=== PATIENT | male | born 1945 | race Caucasian/White ===

== ENCOUNTER 2023-08-02 05:56 | Emergency (ER) | payer OTHER, SELFPAY ==
--- NOTE | ~2023-08-02 | XR_ITS ---
EXAMINATION: XR CHEST CLINICAL INFORMATION: Shortness of breath, altered mental status COMPARISON: None available. TECHNIQUE: Frontal view of the chest was obtained. FINDINGS: vascularity. LUNGS: Diffuse vascular and interstitial prominence is seen in bilateral lungs. No focal airspace disease could be seen. No pneumothorax is seen. BONES: Bony skeleton is intact. XR/XR chest 1V IMPRESSION: 1. Findings are suggestive of COPD. 2. No radiographic signs of acute cardiopulmonary process..
--- NOTE | ~2023-08-02 | CT_ITS ---
EXAMINATION: CT HEAD WITHOUT CONTRAST CLINICAL INFORMATION: Altered mental status. COMPARISON: None available. TECHNIQUE: Contiguous axial imaging was performed from the skull base to vertex without intravenous administration of contrast. This CT examination was performed using dose optimization techniques as appropriate, variously including the following: *Automated exposure control *Adjustment of mA and/or kV according to patient size (this includes techniques or standardized protocols for targeted exams where dose is matched to indication/reason for exam; i.e. extremities or head) *Use of iterative reconstruction technique DLP: 708.43 mGy-cm for the head CT, after the topogram. Please see the dose sheet. FINDINGS: No acute findings. No intracranial hemorrhage, extra-axial surface collection, focal mass effect or midline shift. There is atherosclerotic calcification of proximal intradural segments of vertebral arteries and cavernous carotid arteries. The patchy hypoattenuation within supratentorial white matter is compatible with sequela of chronic microangiopathy. There is an old small infarction along the left appiah radiata. The gaines-white matter differentiation is maintained. No evidence of an acute major vascular territory infarction. Mild parenchymal volume loss with commensurate prominence of ventricles and sulci; no hydrocephalus. Incidentally noted is a very small osteoma of the right frontal sinus and mucosal thickening of bilateral ethmoid air cells. No air-fluid levels within paranasal sinuses. Mild left mastoid effusion is present. A temporomandibular joints and orbits are unremarkable. CT/CT head/brain wo IV con IMPRESSION: No acute intracranial pathology. 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
--- NOTE | ~2023-08-02 | CT_ITS ---
EXAMINATION: CT ABDOMEN AND PELVIS WITH CONTRAST CLINICAL INFORMATION: Abdominal pain. Urinary tract infection. COMPARISON: None available. TECHNIQUE: Multidetector volumetric images were obtained from the superior aspect of the liver through the pubic symphysis following administration 85 mL of Omnipaque 350 intravenous contrast. Sagittal and coronal reformatted images were obtained on the technologist's workstation. Oral contrast: No This CT examination was performed using dose optimization techniques as appropriate, variously including the following: *Automated exposure control *Adjustment of mA and/or kV according to patient size (this includes techniques or standardized protocols for targeted exams where dose is matched to indication/reason for exam; i.e. extremities or head) *Use of iterative reconstruction technique DLP: 783.46 mGy-cm for the abd/pelvis CT, after topograms. See the dose sheet. FINDINGS: LUNG BASES: No pulmonary consolidation or pleural effusion. HEPATOBILIARY: Liver has normal size, shape, and attenuation. Gallbladder has a normal appearance. No dilated bile ducts. PANCREAS: No edema, pancreatic ductal dilatation or mass. SPLEEN: Normal. ADRENAL GLANDS: The right adrenal gland is normal. The superior left adrenal gland is thickened and measures up to 1.6 cm transverse, 3.4 cm AP, density of 35 Hounsfield units on these contrast-enhanced images. Probable adrenal adenoma. If deemed clinically appropriate, pursue follow-up with adrenal washout CT or chemical shift MRI. KIDNEYS AND URETERS: The left kidney is ectopically positioned within the pelvis. The right kidney is in normal position. Renal vascular calcifications are noted. No nephrolithiasis or hydronephrosis. Simple cyst of the left kidney is 2.1 cm transverse dimension. No renal imaging follow-up is recommended for a simple cyst. BLADDER: The urinary bladder is grossly normal. No bladder wall thickening or perivesical edema. BOWEL AND PERITONEUM: Stomach and small bowel are unremarkable. No dilated loops. The appendix is normal. No overt colonic wall thickening or mesenteric fat stranding. No free fluid or pneumoperitoneum. ABDOMINAL WALL: Unremarkable. VASCULATURE: Moderate atherosclerosis of the abdominal aorta and iliac arteries without aneurysm. LYMPH NODES: No pathologic sized lymph nodes in the abdomen. No inguinal lymphadenopathy. Mildly enlarged lymph nodes of [place] measure 1.5 cm short axis dimension in the right and 1.4 cm short axis dimension on the left. PELVIC VISCERA: Prostate gland is prominent, measures approximately 4.8 x 3.8 x 4.8 cm. MUSCULOSKELETAL: Bones are diffusely osteopenic. Chronic loss of height of the T12 vertebral body resulting in approximately 20% height reduction. Also, old L4 compression fracture resulting in approximately 40% height loss. Severe facet arthropathy and grade 1 anterolisthesis at L4-L5. CT/CT abdomen pelvis w IV con IMPRESSION: * No acute imaging abnormalities along the genitourinary tracts. No nephrolithiasis, hydronephrosis or perinephric edema. * Mild prostatomegaly. * The nodular enlargement of the left adrenal gland is likely from an adenoma. If deemed clinically appropriate, pursue follow-up with adrenal washout CT or chemical shift MRI. * The most inferior external iliac chain lymph nodes (nodes of [place]) are mildly enlarged. This is of questionable significance.
[2023-08-02 06:20] VITALS: BP 141/77; PULSE 93; RESP 16; TEMP 37.1; O2SAT 95; BMI 18.1
--- NOTE | 2023-08-02 06:20 | PC.NURSE ---
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 Situation would esculate further so pt was checked by security and pt is clear. sitter present.
[2023-08-02 06:23] LABS: Basophils Absolute Auto 0.1 X10*3/uL (0.0-0.2); Basophils Percent Auto 0.5 % (0-2); Eosinophils Absolute Auto 0.1 X10*3/uL (0.0-0.4); Eosinophils Percent Auto 1.5 % (0-4); Hematocrit 39.1 % (42.0-52.0); Hemoglobin 12.9 g/dl (14.0-18.0); Imm Gran Abs Auto 0.04 X10*3/uL (0.00-0.03); Imm Gran Pct Auto 0.4 % (0.0-0.4); Lymphocytes Absolute Auto 1.9 X10*3/uL (1.2-4.9); Lymphocytes Percent Auto 19.8 % (20-40); MANUAL DIFF FLAG NO; Mean Corpuscular Hemoglobin 28.7 pg (27.0-33.0); Mean Corpuscular Volume 86.9 fL (80.0-98.0); Mean Platelet Volume 10.2 fL (9.4-12.4); Monocytes Absolute Auto 0.7 X10*3/uL (0.1-1.2); Monocytes Percent Auto 7.8 % (2-11); Neutrophils Absolute Auto 6.6 x10*3/uL (2.0-8.3); Platelet Count 197 X10*3/uL (160-400); Red Cell Distribution Width 13.2 % (11.0-16.0); White Blood Count 9.4 X10*3/uL (4.8-10.8)
--- NOTE | 2023-08-02 06:28 | PC.NURSE ---
Pt presents to ED via EMS after reports of him not taking care of himself. Per Section 12, pt was slurring words, urinating on himself and the floor, cannot stand up, does not shower, or care for himself. Pt also attempted to throw a coffee mug at first responders. Pt refused vital signs for EMS. When pt was transferred to ED stretcher, he refused to speak to staff. Pt does not understand why he was brought to the hospital. I attempted to explain to pt that we are concerned that he is not taking care of himself. He is insistent that he can care for himself, he does not realize he smells of stale urine. Pt refused to changeover, but allowed security to search his pockets. Labs were drawn and sent. Pt continues to yell out in bed, asking who's the motherfucker who brought me here? Pt has been cursing at staff in both Kyrgyz and Welsh. You're all going to together of sickness. Pt waiting ED provider at this time.
[2023-08-02 06:29] VITALS: BP 141/77; PULSE 93; RESP 19; TEMP 36.8; O2SAT 97
--- NOTE | 2023-08-02 06:36 | MHC.EDTECH ---
Pt arrived under a section 12 w/ PD and Ambulance. Pt is refusing to be changed over software installation engineer and Covering RN are aware. Security was called and padded pt down for contraband. Pt remains unchanged at the time real estate office supervisor aware
[2023-08-02 06:38] VITALS: BP 141/77; PULSE 93; RESP 16; TEMP 37.1; O2SAT 95
[2023-08-02 06:38] LABS: Alanine Aminotransferase 16 U/L (0-40); Albumin Level 3.8 g/dL (3.5-5.0); Alkaline Phosphatase 83 U/L (39-117); Anion Gap 18 (12-20); Aspartate Amino Transferase 22 U/L (5-37); Bilirubin Total 0.3 mg/dL (0.0-1.0); Blood Urea Nitrogen 17 mg/dL (9-16); Calcium 8.9 mg/dL (8.4-10.2); Carbon Dioxide 18 mmol/L (22-29); Chloride 112 mmol/L (96-108); Creatinine Clr Calc Pharmacy 70.3; Estimated Glomerular Filt Rate > 60; Glucose Random 141 mg/dL (60-115); Potassium 3.5 mmol/L (3.3-5.1); Sodium 144 mmol/L (135-145); Total Protein 6.6 g/dL (6.5-8.0)
--- NOTE | 2023-08-02 07:22 | ED.GENADULT ---
HPI - General Adult General Chief complaint: General Medical Stated complaint: combative ?uti Time Seen by Provider: 08/02/23 06:44 Source: patient and EMS Mode of arrival: EMS Limitations: altered mental status (Alert to person not place time or situation ) History of Present Illness HPI narrative: 78-year-old male hx dm, schizophrenia, diabetes presents via ambulance for failure to thrive x unclear amount of time. Patient tells me he doesn't know why he is here and he would like to leave. EMS brought him in on a section 12. Per EMS partner called ems because patient was not acting himself, seemed confused and was not caring for himself. He has not been showering or taking care of activities of dialy living. Was combative with EMS but cooperative here. Poor historian and unable to give me a clear history. No trauma reported by ems or patient. Related Data Allergies Allergy/AdvReac Type Severity Reaction Status Date / Time No Known Allergies Allergy Verified 08/02/23 06:27 Review of Systems Review of Systems: Yes all other systems are reviewed and are negative PMFSH Past Medical History Attestation statement: The following information was validated with the patient. Source: old records reviewed and nursing notes reviewed Physical Exam ED Vital Signs: Vital Signs - 24 hr 08/02/23 06:20 08/02/23 06:29 08/02/23 06:38 Temperature 98.8 F 98.3 F 98.8 F Pulse Rate 93 93 93 Respiratory Rate 16 19 16 Blood Pressure 141/77 H 141/77 H 141/77 H Pulse Oximetry 95 97 95 Oxygen Delivery Method Room Air Room Air Room Air 08/02/23 09:56 Temperature 98.1 F Pulse Rate 64 Respiratory Rate 18 Blood Pressure 141/61 H Pulse Oximetry 98 Oxygen Delivery Method Room Air BMI result Body Mass Index 18.1 vss Appearance: Alert.? Oriented to person, not place, time or situation.? No acute distress.?Appears unkempt Head: Normocephalic, atraumatic, no step-offs or deformities Eyes: Pupils equal, round and reactive to light.? Neck: Normal inspection.? Neck supple.? CVS: Normal heart rate and rhythm.? Pulses normal.? Respiratory: No respiratory distress.? Breath sounds normal.? Abdomen: Soft and nontender.? Skin: Skin warm and dry.? Normal skin color.? Normal skin turgor.? Extremities: No lower extremity edema.? No calf ttp. 5/5 strength to bilateral upper and lower extremities Neuro: Oriented only to person.? No motor deficit.? No sensory deficit. CN 2-12 intact Course Reevaluation(s) Reevaluation #1: CBC unremarkable. Chemistry no acute findings needed intervention. UA no acute findings. 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 Neuro non-focal. Spoke to daughter Rylie Jordan [phone] who tells me she is patients CONVERTING TECHNICIAN he has been having issues such as worsening confusion at night, weakness, difficulties completing daily tasks of living. He lives at home with his girlfriend Zakia Ortiz ) who feels likes she needs help caring for him and its worse at night. Will give patients GF a call for more information Time: 11:28 Reevaluation #2: Patients girlfriend Zakia tells me she wants him to go to a assisted. She can no longer care for him at home. He is very weak and so is she and he is also urinating on the floor. At this time patient will be placed in obs to allow more time to be seen by PT and CM. Time: 11:30 Medications Administered Discontinued Medications Generic Name Dose Route Start Last Admin Trade Name Freq PRN Reason Stop Dose Admin Iohexol 100 ml 08/02/23 09:47 08/02/23 09:48 Iohexol 350 Mg/Ml 100 Ml Infus..Btl IV 08/02/23 09:48 85 ml ONCE ONE Administration Medical Decision Making Medical Decision Making [facility] Narrative: 07 78 year old male presents w/ ams, ftt from home PE unkempt, oriented only to person not time or situation. No abd tenderness. hx and pe concerning for FTT, UTI. Will rule out metabolic derangments, cystitis. Unlikely ICH, stroke, posterior stroke. Plan- labs, imaging, ua Differential Diagnosis Differential Diagnoses: The differential diagnosis associated with the presentation includes hx and pe concerning for FTT, UTI. Will rule out metabolic derangments, cystitis. Unlikely ICH, stroke, posterior stroke. Admission/Observation Consideration of admission/observation: Escalation of care including admission/observation considered Possible Lab Data [facility] Lab Attestation statement: I reviewed the patient's lab results. 08/02/23 06:19 08/02/23 06:19 Labs: Lab Results 08/02/23 08/02/23 Range/Units 06:19 10:41 WBC 9.4 (4.8-10.8) X10*3/uL RBC 4.50 L (4.60-5.80) X10*6/uL Hgb 12.9 L (14.0-18.0) g/dl Hct 39.1 L (42.0-52.0) % MCV 86.9 (80.0-98.0) fL MCH 28.7 (27.0-33.0) pg MCHC 33.0 (31.0-36.0) g/dl RDW 13.2 (11.0-16.0) % Plt Count 197 (160-400) X10*3/uL MPV 10.2 (9.4-12.4) fL Immature Gran % (Auto) 0.4 (0.0-0.4) % Neut % (Auto) 70.0 (45-73) % Lymph % (Auto) 19.8 L (20-40) % [place] % (Auto) 7.8 (2-11) % Eos % (Auto) 1.5 (0-4) % Baso % (Auto) 0.5 (0-2) % Lymph # (Auto) 1.9 (1.2-4.9) X10*3/uL [place] # (Auto) 0.7 (0.1-1.2) X10*3/uL Eos # (Auto) 0.1 (0.0-0.4) X10*3/uL Baso # (Auto) 0.1 (0.0-0.2) X10*3/uL Abs Immat Gran (auto) 0.04 H (0.00-0.03) X10*3/uL Absolute Neuts (auto) 6.6 (2.0-8.3) x10*3/uL Absolute Nucleated RBC 0.000 (0.0-0.012) X10*3/uL Nucleated RBC % (auto) 0.0 (0.0-0.2) /100WBC Sodium 144 (135-145) mmol/L Potassium 3.5 (3.3-5.1) mmol/L Chloride 112 H (96-108) mmol/L Carbon Dioxide 18 L (22-29) mmol/L Anion Gap 18 (12-20) BUN 17 H (9-16) mg/dL Creatinine 0.71 (0.5-1.4) mg/dL Estim Creat Clear Calc 70.3 Estimated GFR > 60 Random Glucose 141 H (60-115) mg/dL Calcium 8.9 (8.4-10.2) mg/dL Total Bilirubin 0.3 (0.0-1.0) mg/dL AST 22 (5-37) U/L ALT 16 (0-40) U/L Alkaline Phosphatase 83 (39-117) U/L Total Protein 6.6 (6.5-8.0) g/dL Albumin 3.8 (3.5-5.0) g/dL Urine Color Yellow Urine Appearance Clear Urine pH 7.0 (5.0-9.0) Ur Specific [place] >= 1.030 H (1.005-1.025) Urine Protein Negative (Neg-Trace) mg/dL Urine Glucose (UA) Negative (Negative) mg/dL Urine Ketones Negative (Negative) mg/dL Urine Blood Negative (Negative) Urine Nitrite Negative (Negative) Ur Leukocyte Esterase Negative (Negative) Independent Interpretation I performed an independent interpretation of an: CT Scan (CT/CT head/brain wo IV con IMPRESSION: No acute intracranial pathology. 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 Social Determinants Patient?s care significantly limited by Social Determinants of Health including: Inadequate housing, Low income, Alcoholism and drug addiction in family, Problems related to primary support group, Unemployment, Problems related to employment and Other Social Determinant of Health Critical Care Time Critical Care Time Critical Care Time: Yes Total Critical Care Time: 35 Attestation: I attest to this time spent taking care of the patient, obtaining history, physical, reviewing labs, imaging, speaking to my attending, speaking to specialist. Discharge Plan Discharge Clinical Impression: Physical deconditioning Patient Disposition: Still a Patient Print Language: Tajik
--- NOTE | 2023-08-02 09:20 | PC.NURSE ---
assumed care of pt at 0700, pt initially not changed over d/t increased agitation - pt changed over by this RN into regular hospital brunilda, clothing at bedside - hat, sweatshirt, underwear, sweatpants, t-shirt. at alert and oriented to person, understands that he is at a hospital, unclear which one, or why he is here, doesn't know the year/date. 20G PIV placed L AC. pt pending CT scans, verbalised understand of need for a urine sample.
[2023-08-02] MEDS: iohexoL 350 MG/ML 100 ML INFUS..BTL IV (09:48)
[2023-08-02 09:56] VITALS: BP 141/61; PULSE 64; RESP 18; TEMP 36.7; O2SAT 98
[2023-08-02 10:47] LABS: Appearance Urine Clear; Color Urine Yellow; Glucose Urine UA Negative (Negative); Leukocyte Esterase Urine Negative (Negative); Nitrite Urine Negative (Negative); Specific Gravity - Urine >= 1.030 (1.005-1.025); Urine Blood Negative (Negative); Urine Ketones Negative (Negative); Urine Protein Negative (Neg-Trace)
[2023-08-02 11:56] LABS: Ammonia 28 umol/L (13-55)
[2023-08-02 12:13] LABS: Amphetamine Screen Urine Not Detected (Not Detect); Barbiturates, Urine Not Detected (Not Detect); Benzodiazepines Screen Urine Not Detected (Not Detect); Buprenorphine Scr Not Detected (Not Detect); Cannabinoid Screen Urine Not Detected (Not Detect); Cocaine Screen Urine POSITIVE (Not Detect); Fentanyl, urine Not Detected (Not Detect); Methadone Screen, Urine Not Detected (Not Detect); Opiate Screen Urine Not Detected (Not Detect); Oxycodone Screen Urine Not Detected (Not Detect); Phencyclidine Screen Urine Not Detected (Not Detect)
[2023-08-02 12:55] LABS: COVID-19 Test Negative (Negative); IDNOW Serial# 152EDE1D
--- NOTE | 2023-08-02 15:36 | MHC.CM.ED ---
Received case management consult from M[facility]ART[facility]NE[facility]. Eladio came to the ER due to AMS. Patient has been confused. Physical therapy eval completed. 19/10 care is recommended. Attempted to meet with patient. Patient is currently confused. Spoke with patient's sig other/HCP, Zakia via telephone at [phone]. 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 Patient sleeps on the couch. Zakia sleeps in the bedroom. About 3 days ago patient stopped walking and started crawling around the apartment. PCP verified. Copy of HCP obtained from [facility]. Zakia does not feel patient can safely live with her anymore. Zakia aware referral will be broadcasted. Also aware 4 faciities closed locally making placement difficult. Zakia verbalized understanding. Referral broadcasted in [facility] to all facilities within 50 miles that are contracted with [facility] at this time. Continue to monitor for d/c needs.
--- NOTE | 2023-08-02 16:32 | MHC.EDTECH ---
Pt refuses vital signs, begins to get agitated
--- NOTE | 2023-08-02 16:39 | PHA.MEDREC ---
Pharmacy Consult ? Medication Reconciliation Pharmacy has completed the medication reconciliation. Received a list from [facility]. Arslan HamD
--- NOTE | 2023-08-02 16:41 | PC.NURSE ---
this rn assumed care of pt @ 2731. pt yelling at this RN stating you motherfuckers put me in the basement, I'm not staying here . pt instructed to not yell that pt is in the hospital. 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 pt instructed again to not yell as he is in the hospital
[2023-08-02 17:53] VITALS: BP 136/70; PULSE 61; RESP 16; TEMP 36.3; O2SAT 98
[2023-08-02] MEDS: ARIPiprazole 10 MG TABLET PO (18:00)
[2023-08-02] MEDS: amLODIPine Besylate 2.5 MG TABLET PO (18:00)
[2023-08-02] MEDS: Tamsulosin HCL 0.4 MG CAPSULE PO (18:00)
--- NOTE | 2023-08-02 18:17 | PC.NURSE ---
pt provided with diabetic meal try. more calm and cooperative after meal. pt medicated according to umberto
[2023-08-02] MEDS: traZODone HCL 100 MG TABLET PO (20:46)
[2023-08-02] MEDS: lisinopriL 20 MG TABLET PO (20:46)
[2023-08-02] MEDS: QUEtiapine Fumarate 100 MG TABLET PO (20:46)
[2023-08-02] MEDS: Mirtazapine 30 MG TABLET PO (20:47)
[2023-08-02 22:00] VITALS: BP 147/67; PULSE 79; RESP 16; TEMP 36.9; O2SAT 95
--- NOTE | 2023-08-02 22:24 | PC.NURSE ---
pt attempted to removed iv this rn attempted to wrap iv pt refused pt reminded to leave iv in place reinforced with tape pt provided with snack
--- NOTE | 2023-08-02 22:47 | MHC.EDTECH ---
Urinal emptied at 500cc, dark yellow. Pt is eating a tuna sandwich and drinking cranberry juice.
[2023-08-03 04:39] VITALS: BP 158/62; PULSE 59; RESP 19; TEMP 36.9; O2SAT 96
--- NOTE | 2023-08-03 04:39 | PC.NURSE ---
Pt oob with 2 assist to the commode, tolerated well, pt a brown medium soft BM
--- NOTE | 2023-08-03 08:38 | PC.NURSE ---
Daughter Lalito Simms is patient's daughter and would like to be contacted with the plan. she is his WIG COMBER and helps her mom when able but cannot take the patient in as works record librarian and has small children. he number is [phone]
[2023-08-03 09:54] VITALS: BP 158/62
[2023-08-03] MEDS: ARIPiprazole 10 MG TABLET PO (09:54)
[2023-08-03] MEDS: lisinopriL 20 MG TABLET PO ×2 (09:54→22:16)
[2023-08-03 09:55] VITALS: BP 158/62
[2023-08-03] MEDS: Tamsulosin HCL 0.4 MG CAPSULE PO (09:55)
[2023-08-03] MEDS: amLODIPine Besylate 2.5 MG TABLET PO (09:55)
--- NOTE | 2023-08-03 13:26 | MHC.CM.ED ---
Patient remains in ER overflow. No bed offers at this time. Referral broadcasted to all facilities in the [facility] that are contracted with [facility]. 140 referrals made. Continue to monitor for d/c needs.
[2023-08-03 14:00] VITALS: BP 122/59; PULSE 61; RESP 16; TEMP 37.1; O2SAT 95
[2023-08-03] MEDS: Lidocaine 4 % Patch ADH..PATCH 1 PATCH TRANSDERMA (14:29)
[2023-08-03 19:56] VITALS: BP 140/56; PULSE 65; RESP 16; TEMP 37.2; O2SAT 98
[2023-08-03] MEDS: Mirtazapine 30 MG TABLET PO (22:15)
[2023-08-03] MEDS: Acetaminophen 325 MG TABLET 975 MG PO (22:15)
[2023-08-03] MEDS: traZODone HCL 100 MG TABLET PO (22:15)
[2023-08-03 22:16] VITALS: BP 136/52
[2023-08-03] MEDS: QUEtiapine Fumarate 100 MG TABLET PO (22:18)
--- NOTE | 2023-08-03 23:29 | PC.NURSE ---
pt yell at t.w and CIRCULAR SAW EDGE FUSER, threw urinal cup. theraptuic communication provided pt told t/w to get out of his house. offered PRN medication.
--- NOTE | 2023-08-03 23:44 | PC.NURSE ---
pt attempting to get out of bed despite being a two person assist. Threatened to spit at staff. Refusing meds or assistance to ambulate. PT calling TW and SANDWICH ARTIST derogatory names.
[2023-08-04 05:52] VITALS: BP 161/65; PULSE 67; RESP 19; TEMP 36.7; O2SAT 94
--- NOTE | 2023-08-04 06:35 | PC.NURSE ---
pt pulled out IV
[2023-08-04 08:07] LABS: Glucose, Whole Blood 148 mg/dL (60-115)
[2023-08-04] MEDS: ARIPiprazole 10 MG TABLET PO (09:08)
[2023-08-04] MEDS: Tamsulosin HCL 0.4 MG CAPSULE PO (09:08)
[2023-08-04] MEDS: amLODIPine Besylate 2.5 MG TABLET PO (09:09)
[2023-08-04] MEDS: lisinopriL 20 MG TABLET PO ×2 (09:10→21:53)
[2023-08-04 13:16] VITALS: PULSE 63; RESP 16; TEMP 37.1; O2SAT 97
--- NOTE | 2023-08-04 13:36 | MHC.CM.ED ---
Patient remains in ER overflow. [facility] asking for updated clinical info. Sent as requested. Multiple facilities have asked if HCP is invoked. Psych consult ordered and pending at this time for medication recommendations and to eval if patient has capacity to make his own decisions. Continue to monitor for d/c needs.
--- NOTE | 2023-08-04 14:32 | PC.NURSE ---
oob sitting in recline chair, ate well for breakfast and lunch. Denies pain or discomfort
--- NOTE | 2023-08-04 16:07 | PM.PSYCN ---
History of Present Illness Date of Service: 08/04/23 Chief Complaint: combative ?uti HPI Narrative: Patient is a 78-year-old male with history dementia, schizophrenia, diabetes, hypertension, cocaine abuse who presents for dysregulated behavior. Patient lives with his female partner Zakia said that for the past several days he has been crawling on the floor, urinating on the floor. She says she can not take care of him anymore and thinks he needs a retirement. Initially in the ED patient was agitated however has since calmed down and remained calm and cooperative. Psychiatric consult placed to assess for capacity in making decisions regarding treatment. Patient seen with rubber mold maker/ Patient sitting calmly; he is cooperative. Patient knows his name and date of . However he does not know the day, month, or year. He knows that he is in [place] but he does not know the town or where he is at the moment including not knowing that he is currently at a hospital. When asked if this facility building is a hospital, a library, or school, he said I do not know. When told he is at the hospital he said he does not know why he is here. He does not know where he lives or his address. Patient says he lives with his daughters however this is not true, he lives with his girlfriend. He does not remember his girlfriend's name; he does not remember his daughter's names, even though one of them (Rylie) is his bottom liquor attendant and sees him every day Patient says he knows he has diabetes and high blood pressure but that he does not take his medication anymore because I do not need medication. When asked to explain that if he has diabetes, why does he not need medication, patient answered I feel fine.. Patient endorses AH of voices that talk to each other but he does not really understand what they say. Initially Patient does not want to stay in the hospital and says he wants to go home. Later he said I want to stay here unless my mother comes... Unless she has . Casino Floor Person asked how he will get home if he does not know his address or where he lives. Patient says if i start walking home I'll find it. Casino Floor Person asked patient to demonstrate how he will walk. He had much trouble standing up from seated position. Patient shuffled very slowly for about 3-4 feet and said he was worried he might fall (race and sports book writer had similar concern and stayed close by); patient swayed a bit, unbalanced; to turn around, he had to shuffle in an arc to do so. Patient admitted to using cocaine which he says he does from time to time; he says he bought with some girls and seem to imply someone came into the house and sold it to him. Casino Floor Person spoke with patient's daughter Rlyie who said that patient does have chronic knee pain and this was perhaps why he was crawling on the floor. She says that he needs assistance and cues to do things like get dressed. She says he is mostly quiet but that her mother has told her that in the evening times he typically gets louder whole make nonsensical comments. She says periodically he will get mildly dysregulated and at this point she thinks that he remains at his regular self. Past Psychiatric History: Diagnosed with dementia and schizophrenia Medical Evaluation Reviewed: Yes [facility] Medical History (Updated 08/05/23 @ 17:59 by Javier Tong MD) Schizophrenia Dementia Diagnostics Vital Signs (24Hr): Vital Signs - 24 hr 08/03/23 19:56 08/03/23 22:16 08/04/23 05:52 Temperature 98.9 F 98.0 F Pulse Rate 65 67 Respiratory Rate 16 19 Blood Pressure 140/56 H 136/52 L 161/65 H Pulse Oximetry 98 94 Oxygen Delivery Method Room Air Room Air 08/04/23 13:16 Temperature 98.7 F Pulse Rate 63 Respiratory Rate 16 Blood Pressure Pulse Oximetry 97 Oxygen Delivery Method Room Air BMI result Body Mass Index 18.1 Labs 08/02/23 06:19 08/02/23 06:19 Labs: Laboratory Results - last 48 hr 08/04/23 08:04 POC Glucose 148 H Imaging Radiology Impressions: ITS Impressions Abdomen/Pelvis CT 08/02/23 09:52 IMPRESSION: * No acute imaging abnormalities along the genitourinary tracts. No nephrolithiasis, hydronephrosis or perinephric edema. * Mild prostatomegaly. * The nodular enlargement of the left adrenal gland is likely from an adenoma. If deemed clinically appropriate, pursue follow-up with adrenal washout CT or chemical shift MRI. * The most inferior external iliac chain lymph nodes (nodes of [place]) are mildly enlarged. This is of questionable significance. Head CT 08/02/23 09:52 IMPRESSION: No acute intracranial pathology. 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 Chest X-Ray 08/02/23 11:15 IMPRESSION: 1. Findings are suggestive of COPD. 2. No radiographic signs of acute cardiopulmonary process.. Medications Medications Current Medications Amlodipine Besylate (Amlodipine Besylate 2.5 Mg Tablet) 2.5 mg PO DAILY [facility]; Protocol Last Admin: 08/04/23 09:09 Dose: 2.5 mg Aripiprazole (Aripiprazole 10 Mg Tablet) 10 mg PO DAILY [facility] Last Admin: 08/04/23 09:08 Dose: 10 mg Lidocaine (Lidocaine 4 % Patch Adh..Patch) 1 patch TRANSDERMA TID PRN; Protocol PRN Reason: Pain, Moderate(Pain Scale 4-6) Last Admin: 08/03/23 14:29 Dose: 1 patch Lisinopril (Lisinopril 20 Mg Tablet) 20 mg PO BID [facility]; Protocol Last Admin: 08/04/23 09:10 Dose: 20 mg Metformin HCl (Metformin Hcl 500 Mg Tablet) 500 mg PO BID [facility] Mirtazapine (Mirtazapine 30 Mg Tablet) 30 mg PO BEDTIME [facility] Last Admin: 08/03/23 22:15 Dose: 30 mg Non-Formulary Medication (Aripiprazole [Abilify Maintena]) 400 mg IM QMONTH [facility] Quetiapine Fumarate (Quetiapine Fumarate 100 Mg Tablet) 100 mg PO BEDTIME [facility] Last Admin: 08/03/23 22:18 Dose: 100 mg Tamsulosin HCl (Tamsulosin Hcl 0.4 Mg Capsule) 0.4 mg PO DAILY [facility] Last Admin: 08/04/23 09:08 Dose: 0.4 mg Trazodone HCl (Trazodone Hcl 25 Mg Halftab) 25 mg PO BID PRN PRN Reason: anxiety Trazodone HCl (Trazodone Hcl 100 Mg Tablet) 100 mg PO BEDTIME [facility] Last Admin: 08/03/23 22:15 Dose: 100 mg Allergies Allergies Allergy/AdvReac Type Severity Reaction Status Date / Time No Known Allergies Allergy Verified 08/02/23 06:27 Assessment & Plan Assessment & Plan (1) Dementia: Status: Acute Code(s): F03.90 - Unspecified dementia, unspecified severity, without behavioral disturbance, psychotic disturbance, mood disturbance, and anxiety (2) Schizophrenia: Status: Acute Code(s): F20.9 - Schizophrenia, unspecified Plan Patient is a 78-year-old male with history dementia, schizophrenia, diabetes, hypertension, cocaine abuse who presents for dysregulated behavior. Patient lives with his female partner Zakia said that for the past several days he has been crawling on the floor, urinating on the floor. She says she can not take care of him anymore and thinks he needs a retirement. Initially in the ED patient was agitated however has since calmed down and remained calm and cooperative. Psychiatric consult placed to assess for capacity in making decisions regarding treatment. Patient seen with rubber mold maker/ Patient sitting calmly; he is cooperative. Patient knows his name and date of . However he does not know the day, month, or year. He knows that he is in [place] but he does not know the town or where he is at the moment including not knowing that he is currently at a hospital. When asked if this facility building is a hospital, a library, or school, he said I do not know. When told he is at the hospital he said he does not know why he is here. He does not know where he lives or his address. Patient says he lives with his daughters however this is not true, he lives with his girlfriend. He does not remember his girlfriend's name; he does not remember his daughter's names, even though one of them (Rylie) is his bottom liquor attendant and sees him every day Patient says he knows he has diabetes and high blood pressure but that he does not take his medication anymore because I do not need medication. When asked to explain that if he has diabetes, why does he not need medication, patient answered I feel fine.. Patient endorses AH of voices that talk to each other but he does not really understand what they say. Initially Patient does not want to stay in the hospital and says he wants to go home. Later he said I want to stay here unless my mother comes... Unless she has . Casino Floor Person asked how he will get home if he does not know his address or where he lives. Patient says if i start walking home I'll find it. Casino Floor Person asked patient to demonstrate how he will walk. He had much trouble standing up from seated position. Patient shuffled very slowly for about 3-4 feet and said he was worried he might fall (race and sports book writer had similar concern and stayed close by); patient swayed a bit, unbalanced; to turn around, he had to shuffle in an arc to do so. Patient admitted to using cocaine which he says he does from time to time; he says he bought with some girls and seem to imply someone came into the house and sold it to him. Casino Floor Person spoke with patient's daughter Rylie who said that patient does have chronic knee pain and this was perhaps why he was crawling on the floor. She says that he needs assistance and cues to do things like get dressed. She says he is mostly quiet but that her mother has told her that in the evening times he typically gets louder whole make nonsensical comments. She says periodically he will get mildly dysregulated and at this point she thinks that he remains at his regular self. IMPRESSION/PLAN: Patient has a history of dementia, compounded with psychotic illness and apparently cocaine abuse. Labs, CT unremarkable. Per patient's daughter and CARBON CLEANER patient is pretty much at his baseline and whatever dysregulated incident happened was likely mostly attributable to cocaine abuse. At this time, Casino Floor Person finds that patient does not have capacity to make decisions regarding his own treatment. Patient is confused, does not know where he lives or whom he lives with; he does not understand his medical illness or need for medication. No insight into his behaviors. Patient is unable to make informed decisions. He does not have a factual understanding of his situation; he can not appreciate the risks/benefits benefits of refusing treatments or of his own decision making (thinks he can walk home though he has no idea where he lives and has considerable trouble walking on his own). Will invoke HCP at this time. Total time managing care of this patient today ____ minutes. Patient educated on: diagnosis, medication risk/benefits, substance abuse and medical condition Informed Consent: does not understand
[2023-08-04 18:01] LABS: Cholesterol 140 mg/dL (<200); Estimated Average Glucose 137 mg/dL; HDL Cholesterol 38 mg/dL (>40); Hemoglobin A1c % 6.4 % (<6.0); LDL Cholesterol Calculated 67 mg/dL (<100); Triglycerides 178 mg/dL (<150)
[2023-08-04 20:42] VITALS: BP 158/64; PULSE 66; RESP 16; TEMP 36.7; O2SAT 97
[2023-08-04] MEDS: traZODone HCL 100 MG TABLET PO (21:53)
[2023-08-04] MEDS: Mirtazapine 30 MG TABLET PO (21:54)
[2023-08-04] MEDS: metFORMIN HCl 500 MG TABLET PO (21:54)
[2023-08-04] MEDS: QUEtiapine Fumarate 100 MG TABLET PO (21:58)
[2023-08-05] VITALS (11 sets, daily range): BP systolic 116–161; BP diastolic 52–93; PULSE 68–96; RESP 16–18; TEMP 35.6–36.9; O2SAT 95–99
--- NOTE | 2023-08-05 02:00 | PC.NURSE ---
Patient noted to be agitated, attempting to get out of the bed, stating I want to go home now . TRANSFORMATION COACH and sitter tried to redirect patient with no success. This RN also attempted to redirect patient, however he became aggressive, grabbed a bedside commode and tried to swing it at staff. Patient offered PRN Trazodone, patient refused. Security called to bedside, after a conversation with security, patient agreed to get in bed. Patient assisted into a hospital bed, 1:1 sitter at bedtime.
[2023-08-05] MEDS: traZODone HCL 25 MG HALFTAB PO (02:42)
--- NOTE | 2023-08-05 02:45 | PC.NURSE ---
Patient is awake, confused, attempting to get out of the bed. This RN redirected patient and medicated with Trazodone 25 mg PRN, patient covered with warm blanket, currently resting in bed, offers no complaints at this time. 1:1 sitter at bedside.
--- NOTE | 2023-08-05 02:58 | PC.NURSE ---
Patient requested to use a urinal, patient voided 190 mL of yellow, clear urine.
--- NOTE | 2023-08-05 04:46 | PC.NURSE ---
Patient resting quietly with eyes closed at this time. Respirations even and unlabored. 1:1 sitter at bedime.
[2023-08-05] MEDS: metFORMIN HCl 500 MG TABLET PO ×2 (08:04→20:04)
[2023-08-05] MEDS: ARIPiprazole 10 MG TABLET PO (08:04)
[2023-08-05] MEDS: amLODIPine Besylate 2.5 MG TABLET PO (08:04)
[2023-08-05] MEDS: Tamsulosin HCL 0.4 MG CAPSULE PO (08:04)
[2023-08-05] MEDS: lisinopriL 20 MG TABLET PO ×2 (08:12→20:06)
--- NOTE | 2023-08-05 08:23 | PC.NURSE ---
Assumed care of patient at 0700, patient currently sitting up in bed eating breakfast, morning meds given per mar, patient denies pain at this time, wishes to lay down after breakfast. Patient cooperative and compliant with morning meds.
--- NOTE | 2023-08-05 10:57 | PC.NURSE ---
VISUAL ARTS TEACHER ASSISTED PT TO BEDSIDE COMMODE, WASHED HIM UP, JACOB CHANGED. PT RESTING QUIETLY IN BED AT THIS TIME.
--- NOTE | 2023-08-05 18:44 | MHC.CM.ED ---
Per Dr. Tong's psych evaluation: Pt DOES NOT have the capacity to make medical decisions and has INVOKED the HCP.
[2023-08-05] MEDS: traZODone HCL 100 MG TABLET PO (20:04)
[2023-08-05] MEDS: Mirtazapine 30 MG TABLET PO (20:04)
[2023-08-05] MEDS: QUEtiapine Fumarate 100 MG TABLET PO (20:36)
[2023-08-05] MEDS: OLANZapine 10 MG VIAL IM (22:13)
[2023-08-06] VITALS (12 sets, daily range): BP systolic 121–158; BP diastolic 50–88; PULSE 64–100; RESP 12–20; TEMP 35.8–36.5; O2SAT 95–99
[2023-08-06] MEDS: diphenhydrAMINE HCL 50 MG/ML VIAL IM (00:20)
[2023-08-06] MEDS: Ziprasidone Mesylate 20 MG VIAL IM (00:20)
--- NOTE | 2023-08-06 00:59 | PC.NURSE ---
pt assessed at 2212, pt became combative, kicking spitting at staff, trying to get OOB, unable to follow any directions, security called, notified, pt was medicated per MAY, pt lay down on the bed, sitter present, bed alarmed set for safety, VS obtained, medication restraint paper work completed.
--- NOTE | 2023-08-06 02:23 | PC.NURSE ---
pt throwing urine at staff, pt redirected, sitter at bedside
--- NOTE | 2023-08-06 02:31 | PC.NURSE ---
pt at 0023 became verbally abusive toward staff, pt trying get oob, unable to follow commands, kicking, spitting and swinging at staff. security called, aware, medicated per MAR
--- NOTE | 2023-08-06 03:51 | PC.NURSE ---
pt oob, unable to follow commands, sat in the chair for 40 minutes, now pt is on the bed, calm
--- NOTE | 2023-08-06 04:18 | PC.NURSE ---
pt lying in bed, calm and cooperative sitter at bedside
--- NOTE | 2023-08-06 05:46 | PC.NURSE ---
pt urinating on the floor
--- NOTE | 2023-08-06 06:36 | PC.NURSE ---
pt observed sleeping in bed, sitter at bedside
--- NOTE | 2023-08-06 08:40 | MHC.EDTECH ---
pt was washed up and assisted to the the recliner mouth was washed with complete linen change
--- NOTE | 2023-08-06 09:01 | MHC.CM.ED ---
Patient remains in ER. HCP invoked by Dr Tong. Clinical updates sent to all facilities following patient. Continue to monitor for d/c needs.
--- NOTE | 2023-08-06 09:31 | MHC.EDTECH ---
pt ate 100 breakfast
[2023-08-06] MEDS: metFORMIN HCl 500 MG TABLET PO ×2 (09:40→22:00)
[2023-08-06] MEDS: amLODIPine Besylate 2.5 MG TABLET PO (09:46)
[2023-08-06] MEDS: Tamsulosin HCL 0.4 MG CAPSULE PO (09:47)
[2023-08-06] MEDS: ARIPiprazole 10 MG TABLET PO (09:47)
[2023-08-06] MEDS: lisinopriL 20 MG TABLET PO ×2 (09:47→22:00)
--- NOTE | 2023-08-06 13:15 | MHC.EDTECH ---
Addendum entered by Lenore Clay CNA 08/06/23 13:15: his* Original Note: pt ate her lunch 100%
--- NOTE | 2023-08-06 18:08 | PC.NURSE ---
PT CALM, COOPERATIVE DURING SHIFT. COMPLIANT WITH MEDS AND CARE. SITTING IN RECLINER MOST OF SHIFT, HE WAS OFFERED TO LAY IN BED AND HE SAID NO. ATE ALL MEALS INDEPENDENTLY.
--- NOTE | 2023-08-06 19:45 | PC.NURSE ---
Pt sitting in bedside chair watching tv quietly. No signs of distress. Plan of care ongoing.
--- NOTE | 2023-08-06 21:27 | PC.NURSE ---
This RN spoke with pharmacy regarding pm med needed. Pharmacy to send med. Plan of care ongoing.
--- NOTE | 2023-08-06 21:54 | PC.NURSE ---
This RN spoke with Parvin again from pharmacy regarding needing pts seroquel. Per Parvin will send someone down with it. Plan of care ongoing.
[2023-08-06] MEDS: traZODone HCL 100 MG TABLET PO (22:00)
[2023-08-06] MEDS: Mirtazapine 30 MG TABLET PO (22:00)
[2023-08-06] MEDS: QUEtiapine Fumarate 100 MG TABLET PO (22:01)
--- NOTE | 2023-08-06 22:07 | PC.NURSE ---
Pt medicated per may. Plan of care ongoing.
--- NOTE | 2023-08-06 22:20 | PC.NURSE ---
Pt attempting to get out of bedside chair. Pt assisted by this RN into bed and positioned for comfort. Pt requested and TV turned off. Plan of care ongoing.
--- NOTE | 2023-08-06 22:41 | PC.NURSE ---
Pt attempting to get oob, stating he needs to use the bathroom. Tech assisted pt with urinal. Pt redirected back into bed. Plan of care ongoing.
--- NOTE | 2023-08-06 23:35 | PC.NURSE ---
Pt attempting to get oob. Pt spitting on the floor. Pt redirected by sitter and this RN. Pt given water by tech and assisted back into bed. Plan of care ongoing.
--- NOTE | 2023-08-06 23:57 | PC.NURSE ---
Pt attempting to get oob, being verbally abusive, yelling, kicking and punching the sitter. Security called. landfill grader and provider notified pt being aggressive. Plan of care ongoing.
[2023-08-07] VITALS (18 sets, daily range): BP systolic 116–161; BP diastolic 60–91; PULSE 62–104; RESP 14–20; TEMP 36.7–36.9; O2SAT 93–100
--- NOTE | 2023-08-07 00:03 | ED_ITS ---
HPI - General Adult General Chief complaint: General Medical Stated complaint: combative ?uti Time Seen by Provider: 08/02/23 06:44 Source: patient and EMS Mode of arrival: EMS Limitations: altered mental status (Alert to person not place time or situation ) Related Data Home Medications ?Medication ?Instructions ?Recorded ?Confirmed acetaminophen 325 mg tablet 650 mg PO Q8H PRN Pain 08/02/23 08/02/23 amlodipine 2.5 mg tablet 2.5 mg PO DAILY 08/02/23 08/02/23 aripiprazole 10 mg tablet 10 mg PO DAILY 08/02/23 08/02/23 aripiprazole 400 mg intramuscular 400 mg IM QMONTH 08/02/23 08/02/23 suspension,extended release (Carolalifsujey Maintena) lidocaine 4 % topical patch 1 patch topical TID PRN Pain 08/02/23 08/02/23 lisinopril 20 mg tablet 20 mg PO BID 08/02/23 08/02/23 metformin 500 mg tablet 500 mg PO BID 08/02/23 08/02/23 mirtazapine 30 mg tablet 30 mg PO BEDTIME 08/02/23 08/02/23 quetiapine 100 mg tablet 100 mg PO BEDTIME 08/02/23 08/02/23 tamsulosin 0.4 mg capsule 0.4 mg PO DAILY 08/02/23 08/02/23 trazodone 100 mg tablet 100 mg PO BEDTIME 08/02/23 08/02/23 trazodone 50 mg tablet 25 mg PO BID PRN anxiety 08/02/23 08/02/23 Allergies Allergy/AdvReac Type Severity Reaction Status Date / Time No Known Allergies Allergy Verified 08/02/23 06:27 [facility] Past Medical History Medical History (Updated 08/11/23 @ 17:01 by Roxanna Souza) Schizophrenia Dementia Social History Social History Smoked in Last 30 Days: Yes Use of substances other than those prescribed or required for medical reasons: No Advance Directives: No Do you have a plan to hurt others: No Plan Physical Exam ED Vital Signs: Vital Signs - 24 hr 08/11/23 07:47 08/11/23 10:06 08/11/23 12:05 Temperature 97.5 F 97.8 F Pulse Rate 64 70 69 Respiratory Rate 20 12 Blood Pressure 137/62 114/77 Pulse Oximetry 96 98 98 Oxygen Delivery Method Room Air Room Air Room Air 08/11/23 21:49 08/11/23 21:50 08/12/23 03:19 Temperature Pulse Rate 68 Respiratory Rate 16 16 Blood Pressure 133/71 133/71 Pulse Oximetry 94 Oxygen Delivery Method Room Air 08/12/23 06:14 Temperature 98.0 F Pulse Rate 64 Respiratory Rate 20 Blood Pressure 108/51 L Pulse Oximetry 97 Oxygen Delivery Method Room Air BMI result Body Mass Index 18.1 Course Reevaluation(s) Reevaluation #1: Patient striking and kicking staff despite multiple attempts to deescalate the situation. Patient medicated with Benadryl and Zyprexa IM Time: 00:03 Reevaluation #2: On re-evaluation, patient sleeping comfortably in bed. No further episodes of combativeness. Vital signs have remained stable. Meds reconciled. Physician observation continued pending psych consultation and disposition. Time: 09:10 Reevaluation #3: 08/12/2023 0701 --> Physician observation continues. Case management continues to follow. Psychiatry determined that the patient does not have capacity to make his own decisions secondary to severe dementia. They recommended IM Zyprexa 5mg and 1-2mg of IM Ativan if necessary. They go on to state they recommend against Benadryl administration due to the increased risk for delirium in individuals with dementia. Medications Administered Generic Name Dose Route Start Last Admin Trade Name Freq PRN Reason Stop Dose Admin Amlodipine Besylate 2.5 mg 08/02/23 17:15 08/11/23 13:36 Amlodipine Besylate 2.5 Mg Tablet PO 2.5 mg DAILY CRISPIN Administration Protocol Aripiprazole 10 mg 08/02/23 17:15 08/11/23 13:36 Aripiprazole 10 Mg Tablet PO 10 mg DAILY CRISPIN Administration Lidocaine 1 patch 08/02/23 17:29 08/03/23 14:29 Lidocaine 4 % Patch Adh..Patch TRANSDERMA 1 patch TID PRN Administration Pain, Moderate(Pain Scale 4-6) Protocol Lisinopril 20 mg 08/02/23 21:00 08/11/23 21:49 Lisinopril 20 Mg Tablet PO 20 mg BID CRISPIN Administration Protocol Metformin HCl 500 mg 08/04/23 21:00 08/11/23 21:49 Metformin Hcl 500 Mg Tablet PO 500 mg BID CRISPIN Administration Mirtazapine 30 mg 08/02/23 21:00 08/11/23 21:48 Mirtazapine 30 Mg Tablet PO 30 mg BEDTIME CRISPIN Administration Quetiapine Fumarate 100 mg 08/02/23 21:00 08/11/23 21:48 Quetiapine Fumarate 100 Mg Tablet PO 100 mg BEDTIME CRISPIN Administration Tamsulosin HCl 0.4 mg 08/02/23 17:15 08/11/23 13:36 Tamsulosin Hcl 0.4 Mg Capsule PO 0.4 mg DAILY CRISPIN Administration Trazodone HCl 25 mg 08/02/23 17:29 08/10/23 04:47 Trazodone Hcl 25 Mg Halftab PO 25 mg BID PRN Administration anxiety Trazodone HCl 100 mg 08/02/23 21:00 08/11/23 21:49 Trazodone Hcl 100 Mg Tablet PO 100 mg BEDTIME CRISPIN Administration Discontinued Medications Generic Name Dose Route Start Last Admin Trade Name Nickq PRN Reason Stop Dose Admin Acetaminophen 975 mg 08/03/23 19:45 08/03/23 22:15 Acetaminophen 325 Mg Tablet PO 08/03/23 19:46 975 mg ONCE ONE Administration Diphenhydramine HCl 50 mg 08/06/23 00:23 08/06/23 00:20 Diphenhydramine Hcl 50 Mg/Ml Vial IM 08/06/23 00:24 50 mg ONCE ONE Administration Diphenhydramine HCl 50 mg 08/07/23 00:02 08/07/23 00:21 Diphenhydramine Hcl 50 Mg/Ml Vial IM 08/07/23 00:03 50 mg ONCE ONE Administration Diphenhydramine HCl 50 mg 08/10/23 21:51 08/11/23 00:12 Diphenhydramine Hcl 50 Mg/Ml Vial IM 08/10/23 21:52 50 mg ONCE ONE Administration Iohexol 100 ml 08/02/23 09:47 08/02/23 09:48 Iohexol 350 Mg/Ml 100 Ml Infus..Btl IV 08/02/23 09:48 85 ml ONCE ONE Administration Lorazepam 2 mg 08/10/23 21:51 08/11/23 00:13 Lorazepam 2 Mg/Ml Vial IM 08/10/23 21:52 2 mg STAT STA Administration Metformin HCl 500 mg 08/11/23 13:45 08/11/23 14:27 Metformin Hcl 500 Mg Tablet PO 08/11/23 13:46 500 mg ONCE ONE Administration Olanzapine 10 mg 08/05/23 22:03 08/05/23 22:13 Olanzapine 10 Mg Vial IM 08/05/23 22:04 10 mg STAT STA Administration Olanzapine 10 mg 08/07/23 00:02 08/07/23 00:20 Olanzapine 10 Mg Vial IM 08/07/23 00:03 10 mg STAT STA Administration Olanzapine 10 mg 08/10/23 21:51 08/11/23 00:13 Olanzapine 10 Mg Vial IM 08/10/23 21:52 10 mg STAT STA Administration Ziprasidone 20 mg 08/06/23 00:23 08/06/23 00:20 Ziprasidone Mesylate 20 Mg Vial IM 08/06/23 00:24 20 mg ONCE ONE Administration Ziprasidone 20 mg 08/07/23 01:20 08/07/23 01:34 Ziprasidone Mesylate 20 Mg Vial IM 08/07/23 01:21 20 mg ONCE ONE Administration Ziprasidone 20 mg 08/09/23 22:29 08/10/23 04:54 Ziprasidone Mesylate 20 Mg Vial IM 08/09/23 22:30 Not Given ONCE ONE Medical Decision Making Lab Data 08/02/23 06:19 08/10/23 07:41 Labs: Lab Results 08/02/23 08/02/23 08/02/23 Range/Units 06:19 10:41 11:43 WBC 9.4 (4.8-10.8) X10*3/uL RBC 4.50 L (4.60-5.80) X10*6/uL Hgb 12.9 L (14.0-18.0) g/dl Hct 39.1 L (42.0-52.0) % MCV 86.9 (80.0-98.0) fL MCH 28.7 (27.0-33.0) pg MCHC 33.0 (31.0-36.0) g/dl RDW 13.2 (11.0-16.0) % Plt Count 197 (160-400) X10*3/uL MPV 10.2 (9.4-12.4) fL Immature Gran % (Auto) 0.4 (0.0-0.4) % Neut % (Auto) 70.0 (45-73) % Lymph % (Auto) 19.8 L (20-40) % Baca % (Auto) 7.8 (2-11) % Eos % (Auto) 1.5 (0-4) % Baso % (Auto) 0.5 (0-2) % Lymph # (Auto) 1.9 (1.2-4.9) X10*3/uL [place] # (Auto) 0.7 (0.1-1.2) X10*3/uL Eos # (Auto) 0.1 (0.0-0.4) X10*3/uL Baso # (Auto) 0.1 (0.0-0.2) X10*3/uL Abs Immat Gran (auto) 0.04 H (0.00-0.03) X10*3/uL Absolute Neuts (auto) 6.6 (2.0-8.3) x10*3/uL Absolute Nucleated RBC 0.000 (0.0-0.012) X10*3/uL Nucleated RBC % (auto) 0.0 (0.0-0.2) /100WBC Sodium 144 (135-145) mmol/L Potassium 3.5 (3.3-5.1) mmol/L Chloride 112 H (96-108) mmol/L Carbon Dioxide 18 L (22-29) mmol/L Anion Gap 18 (12-20) BUN 17 H (9-16) mg/dL Creatinine 0.71 (0.5-1.4) mg/dL Estim Creat Clear Calc 70.3 Estimated GFR > 60 POC Glucose (60-115) mg/dL Random Glucose 141 H (60-115) mg/dL Estimat Average Glucose mg/dL Hemoglobin A1c % (<6.0) % Calcium 8.9 (8.4-10.2) mg/dL Total Bilirubin 0.3 (0.0-1.0) mg/dL AST 22 (5-37) U/L ALT 16 (0-40) U/L Alkaline Phosphatase 83 (39-117) U/L Ammonia 28 (13-55) umol/L Total Protein 6.6 (6.5-8.0) g/dL Albumin 3.8 (3.5-5.0) g/dL Triglycerides (<150) mg/dL Cholesterol (<200) mg/dL LDL Cholesterol, Calc (<100) mg/dL HDL Cholesterol (>40) mg/dL Urine Color Yellow Urine Appearance Clear Urine pH 7.0 (5.0-9.0) Ur Specific [place] >= 1.030 H (1.005-1.025) Urine Protein Negative (Neg-Trace) mg/dL Urine Glucose (UA) Negative (Negative) mg/dL Urine Ketones Negative (Negative) mg/dL Urine Blood Negative (Negative) Urine Nitrite Negative (Negative) Ur Leukocyte Esterase Negative (Negative) Urine Opiates Screen Not Detected (Not Detect) Ur Buprenorphine Scrn Not Detected (Not Detect) ng/mL Ur Oxycodone Screen Not Detected (Not Detect) ng/mL Urine Methadone Screen Not Detected (Not Detect) ng/mL Urine Fentanyl Screen Not Detected (Not Detect) Ur Barbiturates Screen Not Detected (Not Detect) Ur Phencyclidine Scrn Not Detected (Not Detect) Ur Amphetamines Screen Not Detected (Not Detect) U Benzodiazepines Scrn Not Detected (Not Detect) Urine Cocaine Screen POSITIVE H (Not Detect) U Marijuana (THC) Screen Not Detected (Not Detect) COVID-19 (MEY) (Negative) COVID-19 Clin Com 08/02/23 08/04/23 08/04/23 Range/Units 12:32 08:04 17:31 WBC (4.8-10.8) X10*3/uL RBC (4.60-5.80) X10*6/uL Hgb (14.0-18.0) g/dl Hct (42.0-52.0) % MCV (80.0-98.0) fL MCH (27.0-33.0) pg MCHC (31.0-36.0) g/dl RDW (11.0-16.0) % Plt Count (160-400) X10*3/uL MPV (9.4-12.4) fL Immature Gran % (Auto) (0.0-0.4) % Neut % (Auto) (45-73) % Lymph % (Auto) (20-40) % Baca % (Auto) (2-11) % Eos % (Auto) (0-4) % Baso % (Auto) (0-2) % Lymph # (Auto) (1.2-4.9) X10*3/uL [place]aca # (Auto) (0.1-1.2) X10*3/uL Eos # (Auto) (0.0-0.4) X10*3/uL Baso # (Auto) (0.0-0.2) X10*3/uL Abs Immat Gran (auto) (0.00-0.03) X10*3/uL Absolute Neuts (auto) (2.0-8.3) x10*3/uL Absolute Nucleated RBC (0.0-0.012) X10*3/uL Nucleated RBC % (auto) (0.0-0.2) /100WBC Sodium (135-145) mmol/L Potassium (3.3-5.1) mmol/L Chloride (96-108) mmol/L Carbon Dioxide (22-29) mmol/L Anion Gap (12-20) BUN (9-16) mg/dL Creatinine (0.5-1.4) mg/dL Estim Creat Clear Calc Estimated GFR POC Glucose 148 H (60-115) mg/dL Random Glucose (60-115) mg/dL Estimat Average Glucose 137 mg/dL Hemoglobin A1c % 6.4 H (<6.0) % Calcium (8.4-10.2) mg/dL Total Bilirubin (0.0-1.0) mg/dL AST (5-37) U/L ALT (0-40) U/L Alkaline Phosphatase (39-117) U/L Ammonia (13-55) umol/L Total Protein (6.5-8.0) g/dL Albumin (3.5-5.0) g/dL Triglycerides 178 H (<150) mg/dL Cholesterol 140 (<200) mg/dL LDL Cholesterol, Calc 67 (<100) mg/dL HDL Cholesterol 38 L (>40) mg/dL Urine Color Urine Appearance Urine pH (5.0-9.0) Ur Specific [place] (1.005-1.025) Urine Protein (Neg-Trace) mg/dL Urine Glucose (UA) (Negative) mg/dL Urine Ketones (Negative) mg/dL Urine Blood (Negative) Urine Nitrite (Negative) Ur Leukocyte Esterase (Negative) Urine Opiates Screen (Not Detect) Ur Buprenorphine Scrn (Not Detect) ng/mL Ur Oxycodone Screen (Not Detect) ng/mL Urine Methadone Screen (Not Detect) ng/mL Urine Fentanyl Screen (Not Detect) Ur Barbiturates Screen (Not Detect) Ur Phencyclidine Scrn (Not Detect) Ur Amphetamines Screen (Not Detect) U Benzodiazepines Scrn (Not Detect) Urine Cocaine Screen (Not Detect) U Marijuana (THC) Screen (Not Detect) COVID-19 (MEY) Negative (Negative) COVID-19 Clin Com See Note 08/10/23 Range/Units 07:41 WBC (4.8-10.8) X10*3/uL RBC (4.60-5.80) X10*6/uL Hgb (14.0-18.0) g/dl Hct (42.0-52.0) % MCV (80.0-98.0) fL MCH (27.0-33.0) pg MCHC (31.0-36.0) g/dl RDW (11.0-16.0) % Plt Count (160-400) X10*3/uL MPV (9.4-12.4) fL Immature Gran % (Auto) (0.0-0.4) % Neut % (Auto) (45-73) % Lymph % (Auto) (20-40) % Baca % (Auto) (2-11) % Eos % (Auto) (0-4) % Baso % (Auto) (0-2) % Lymph # (Auto) (1.2-4.9) X10*3/uL [place] # (Auto) (0.1-1.2) X10*3/uL Eos # (Auto) (0.0-0.4) X10*3/uL Baso # (Auto) (0.0-0.2) X10*3/uL Abs Immat Gran (auto) (0.00-0.03) X10*3/uL Absolute Neuts (auto) (2.0-8.3) x10*3/uL Absolute Nucleated RBC (0.0-0.012) X10*3/uL Nucleated RBC % (auto) (0.0-0.2) /100WBC Sodium (135-145) mmol/L Potassium (3.3-5.1) mmol/L Chloride (96-108) mmol/L Carbon Dioxide (22-29) mmol/L Anion Gap (12-20) BUN (9-16) mg/dL Creatinine 0.76 (0.5-1.4) mg/dL Estim Creat Clear Calc 65.7 Estimated GFR > 60 POC Glucose (60-115) mg/dL Random Glucose (60-115) mg/dL Estimat Average Glucose mg/dL Hemoglobin A1c % (<6.0) % Calcium (8.4-10.2) mg/dL Total Bilirubin (0.0-1.0) mg/dL AST (5-37) U/L ALT (0-40) U/L Alkaline Phosphatase (39-117) U/L Ammonia (13-55) umol/L Total Protein (6.5-8.0) g/dL Albumin (3.5-5.0) g/dL Triglycerides (<150) mg/dL Cholesterol (<200) mg/dL LDL Cholesterol, Calc (<100) mg/dL HDL Cholesterol (>40) mg/dL Urine Color Urine Appearance Urine pH (5.0-9.0) Ur Specific [place] (1.005-1.025) Urine Protein (Neg-Trace) mg/dL Urine Glucose (UA) (Negative) mg/dL Urine Ketones (Negative) mg/dL Urine Blood (Negative) Urine Nitrite (Negative) Ur Leukocyte Esterase (Negative) Urine Opiates Screen (Not Detect) Ur Buprenorphine Scrn (Not Detect) ng/mL Ur Oxycodone Screen (Not Detect) ng/mL Urine Methadone Screen (Not Detect) ng/mL Urine Fentanyl Screen (Not Detect) Ur Barbiturates Screen (Not Detect) Ur Phencyclidine Scrn (Not Detect) Ur Amphetamines Screen (Not Detect) U Benzodiazepines Scrn (Not Detect) Urine Cocaine Screen (Not Detect) U Marijuana (THC) Screen (Not Detect) COVID-19 (MEY) (Negative) COVID-19 Clin Com Discharge Plan Discharge Clinical Impression: Physical deconditioning Patient Disposition: Still a Patient Prescriptions: No Action metformin 500 mg tablet 500 mg PO BID acetaminophen 325 mg Tablet 650 mg PO Q8H PRN (Reason: Pain) lidocaine 4 % Adhesive Patch,Medicated 1 patch TOPICAL TID PRN (Reason: Pain) trazodone 50 mg tablet 25 mg PO BID PRN (Reason: anxiety) lisinopril 20 mg Tablet 20 mg PO BID amlodipine 2.5 mg Tablet 2.5 mg PO DAILY quetiapine 100 mg tablet 100 mg PO BEDTIME tamsulosin 0.4 mg capsule 0.4 mg PO DAILY trazodone 100 mg tablet 100 mg PO BEDTIME mirtazapine 30 mg tablet 30 mg PO BEDTIME aripiprazole 10 mg Tablet 10 mg PO DAILY Abilify Maintena 400 mg suspension,extended rel recon 400 mg IM QMONTH Referrals: [facility] [Outside] ([address], [place] [id number] ) Print Language: Croatian
[2023-08-07] MEDS: OLANZapine 10 MG VIAL IM (00:20)
[2023-08-07] MEDS: diphenhydrAMINE HCL 50 MG/ML VIAL IM (00:21)
--- NOTE | 2023-08-07 00:21 | PC.NURSE ---
Pt punching at sitter and security, being verbally aggressive with sitter, security, and RN. Pt assisted back into bed by security. Pt medicated per may. Pt requested and placed on bed bird. Pt requested and given urinal. Pt still attempting to punch tech as she is trying to complete sonu care and bed change. Plan of care ongoing.
--- NOTE | 2023-08-07 00:32 | MHC.EDTECH ---
Patient was incontinent of urine ,had a large soft bowel movement in bed bird ,care given and bedding change .
--- NOTE | 2023-08-07 00:35 | PC.NURSE ---
Pt attempting to get oob. Redirected by sitter. Plan of care ongoing.
--- NOTE | 2023-08-07 00:55 | PC.NURSE ---
Pt attempting to get oob, redirected by sitter. Pt sitting up in bed. Plan of care ongoing.
--- NOTE | 2023-08-07 01:10 | PC.NURSE ---
Pt still attempting to get oob, sitter redirecting pt. Pt sitting at the end of the bed. Plan of care ongoing.
--- NOTE | 2023-08-07 01:18 | PC.NURSE ---
Pt continues to attempt to get oob, sitting at the edge of the bed and attempting to stand. Pt still being aggressive towards staff attempting to hit and sitter, tech, and RN. Security called. Pt taking off hospital [facility] provider notified and aware. Plan of care ongoing.
--- NOTE | 2023-08-07 01:25 | PC.NURSE ---
Pt assisted back into bed by security. Pt yelling and being verbally aggressive. Plan of care ongoing.
[2023-08-07] MEDS: Ziprasidone Mesylate 20 MG VIAL IM (01:34)
--- NOTE | 2023-08-07 01:37 | PC.NURSE ---
Pt medicated per mar. Pt still attempting to kick and punch staff. Security remains at bedside. Unable to get vitals on pt, pt being combative. Plan of care ongoing.
--- NOTE | 2023-08-07 01:45 | PC.NURSE ---
Pt punched tech. Pt assisted with urinal by sitter. Pt refusing to stay in bed. Pt still refusing vitals. Plan of care ongoing.
--- NOTE | 2023-08-07 01:50 | PC.NURSE ---
Pt continues to attempt to get oob. Pt sitting up in bed, being verbally abusive to staff. Plan of care ongoing.
--- NOTE | 2023-08-07 02:08 | PC.NURSE ---
Pt continues to try to get oob. Pt redirected by sitter. Pt continues to refuse vitals. Plan of care ongoing.
--- NOTE | 2023-08-07 02:16 | PC.NURSE ---
Pt allowed this RN to take vitals. Pt assisted back into bed by tech and sitter. Plan of care ongoing.
--- NOTE | 2023-08-07 02:22 | PC.NURSE ---
Pt kneeling in bed attempting to get oob. This RN and sitter redirected pt back into bed supine position. Pt requested and covered with blanket. Plan of care ongoing.
--- NOTE | 2023-08-07 02:57 | PC.NURSE ---
Pt continues to attempt to get oob, kneeling in bed. Pt redirected by this RN and sitter. Plan of care ongoing.
--- NOTE | 2023-08-07 03:26 | PC.NURSE ---
Pt redirected into bed. Plan of care ongoing.
--- NOTE | 2023-08-07 03:36 | PC.NURSE ---
Pt kneeling in bed, pt redirected to sit in bed by sitter. Plan of care ongoing.
--- NOTE | 2023-08-07 04:17 | PC.NURSE ---
Pt able to reach and pull wires to monitor and attempting to kick sitter. Pt redirected, plan of care ongoing.
--- NOTE | 2023-08-07 05:00 | PC.NURSE ---
Pt out oob, smacked sitter in her hand. Pt redirected back into bed by this RN and tech. Plan of care ongoing.
--- NOTE | 2023-08-07 05:16 | PC.NURSE ---
Pt oob, redirected back into bed by this RN. Sitter remains @ bedside. Plan of care ongoing.
--- NOTE | 2023-08-07 07:56 | PC.NURSE ---
assumed care of pt at 0700. pt with 1:1 sitter at bedside for pt safety. pt restless at beginning of shift, crawling around in bed. pt now resting quietly in bed. rr even/unlabored. plan of care ongoing.
--- NOTE | 2023-08-07 08:56 | PC.NURSE ---
pt sleeping in bed with 1:1 sitter at bedside.
[2023-08-07] MEDS: metFORMIN HCl 500 MG TABLET PO ×2 (09:58→21:03)
[2023-08-07] MEDS: amLODIPine Besylate 2.5 MG TABLET PO (09:58)
[2023-08-07] MEDS: lisinopriL 20 MG TABLET PO ×2 (09:59→21:03)
[2023-08-07] MEDS: Tamsulosin HCL 0.4 MG CAPSULE PO (09:59)
[2023-08-07] MEDS: traZODone HCL 25 MG HALFTAB PO (09:59)
[2023-08-07] MEDS: ARIPiprazole 10 MG TABLET PO (10:02)
--- NOTE | 2023-08-07 10:13 | PC.NURSE ---
pt medicated per mar with po medications. pt cooperative and tolerated well.
--- NOTE | 2023-08-07 11:29 | PC.NURSE ---
pt sleeping peacefully, rr even/unlabored. 1:1 sitter at bedside. plan of care ongoing.
--- NOTE | 2023-08-07 16:01 | MHC.CM.ED ---
Review of SNF referrals do not support any offers. Review of EMR notes continued aggressive behavior towards staff i.e. punching, striking, etc. [facility] may need to assist with placement by way of OON contract. Discussed behaviors w/ED MD: ? changing meds. Barriers include: activated HCP, + tox screen on arrival, aggressive/physical and assaultive behavior towards staff. ED CM to follow for placement.
--- NOTE | 2023-08-07 18:17 | PC.NURSE ---
pt resting quietly with sitter at bedside and bed alarm on for pt safety. pt sitting up eating dinner. pt able to get up to bedside commode multiple times throughout day with 1 assist. plan of care ongoing.
--- NOTE | 2023-08-07 19:51 | MHC.EDTECH ---
THIS PCT ASSUMED CARE OF PATIENT AT 1900 ,VITALS TAKEN ,PATIENT WAS GIVEN A SPONGE BATH ,BEDDING CHANGE AND AND CLOTHING CHANGE ,PATIENT ATE !)) % OF DINNER AND DRANK 360 ML FLUIDS ,SNACK OFFER ,PATIENT REFUSED ,PATIENT NOW SLEEPING ,BED ALARM ON AND TELLE SITTER CAMERA IN ROOM .
[2023-08-07] MEDS: QUEtiapine Fumarate 100 MG TABLET PO (21:03)
[2023-08-07] MEDS: Mirtazapine 30 MG TABLET PO (21:03)
[2023-08-07] MEDS: traZODone HCL 100 MG TABLET PO (21:03)
--- NOTE | 2023-08-08 06:45 | PC.NURSE ---
Pt calm and cooperative, redirectable throughout the entire shift. Camera in room. 1:[address] plan of care ongoing
[2023-08-08 06:46] VITALS: BP 150/79; PULSE 65; RESP 18; TEMP 36.6; O2SAT 97
--- NOTE | 2023-08-08 07:42 | PC.NURSE ---
this RN resumed care of pt at 0700. pt finished 100% of breakfast. denies pain/has no acute complaints noted at this time. pt resting comfortably in bed in no apparent distress w/ lights dimmed. no sob/wob noted. respirations even and unlabored. camera/bed exit alarm/1:[address] for safety precautions[address] call pereyra placed within reach.
[2023-08-08] MEDS: metFORMIN HCl 500 MG TABLET PO ×2 (09:47→22:02)
[2023-08-08] MEDS: ARIPiprazole 10 MG TABLET PO (09:47)
[2023-08-08] MEDS: amLODIPine Besylate 2.5 MG TABLET PO (09:47)
[2023-08-08] MEDS: lisinopriL 20 MG TABLET PO ×2 (09:47→22:03)
[2023-08-08] MEDS: Tamsulosin HCL 0.4 MG CAPSULE PO (09:48)
--- NOTE | 2023-08-08 09:50 | PC.NURSE ---
medication administered per provider order. pt took pills whole w/ water w/o difficulty.
[2023-08-08 13:31] VITALS: BP 164/86; PULSE 69; RESP 16; TEMP 36.7; O2SAT 97
--- NOTE | 2023-08-08 14:18 | MHC.CM.ED ---
Review of STR referrals: [facility] in [facility] will request auth from [facility] on Tuesday 08/08. [place] requests follow up as well for bed availability on Wednesday. ED CM to follow
[2023-08-08 18:11] VITALS: BP 164/87; PULSE 69; RESP 16; TEMP 36.2; O2SAT 97
--- NOTE | 2023-08-08 19:55 | PC.NURSE ---
pt resting in bed, awake but calm and cooperative. camera at bedside
--- NOTE | 2023-08-08 21:55 | PC.NURSE ---
pt refusing to take medication at this time
[2023-08-08] MEDS: QUEtiapine Fumarate 100 MG TABLET PO (22:02)
[2023-08-08] MEDS: Mirtazapine 30 MG TABLET PO (22:02)
[2023-08-08 22:03] VITALS: BP 158/63
[2023-08-08] MEDS: traZODone HCL 100 MG TABLET PO (22:03)
[2023-08-09] VITALS (9 sets, daily range): BP systolic 114–147; BP diastolic 51–68; PULSE 64–102; RESP 14–18; TEMP 36.4–37.1; O2SAT 93–96
--- NOTE | 2023-08-09 00:14 | PC.NURSE ---
pt attempt to get OOB. redirected
[2023-08-09] MEDS: Tamsulosin HCL 0.4 MG CAPSULE PO (08:19)
[2023-08-09] MEDS: ARIPiprazole 10 MG TABLET PO (08:19)
[2023-08-09] MEDS: metFORMIN HCl 500 MG TABLET PO ×2 (08:20→20:12)
[2023-08-09] MEDS: lisinopriL 20 MG TABLET PO ×2 (08:20→20:12)
[2023-08-09] MEDS: amLODIPine Besylate 2.5 MG TABLET PO (08:21)
--- NOTE | 2023-08-09 13:20 | MHC.CM.ED ---
Patient remains in ER. [facility] in [facility] is in the process of obtaining insurance auth. Patient will need [facility] PASRR Level 2. T/W already submitted for this. Patient's sig other/HCP, Zakia, made aware and agreeable via telephone at [phone]. [facility] will need Zakia to sign consent forms. It will be difficult for Zakia to get to facility on Wednesday. T/W requested consent forms be sent here. Zakia will in ER on Wednesday in the morning to sign consents. Continue to monitor for d/c needs.
[2023-08-09] MEDS: Mirtazapine 30 MG TABLET PO (20:12)
[2023-08-09] MEDS: QUEtiapine Fumarate 100 MG TABLET PO (20:12)
[2023-08-09] MEDS: traZODone HCL 100 MG TABLET PO (20:12)
--- NOTE | 2023-08-09 23:45 | PC.NURSE ---
At approximately 2225 pt became confused and trying to get OOB. sitter attempting to redirect for safety but pt believed to be in his home and requesting everyone leave. Pt stating he would spit if he would touch him, trying to push the sitter Security called to bedside. Primary nurse able to talk with Doctor and get an IM order for Jaison. Security able to help calm pt down and the medication was no longer needed. Medication wasted but order still available if need
--- NOTE | 2023-08-10 02:28 | PC.NURSE ---
pt became restless and attempting to get oob. staff states pt does well in a recliner. hold off on med per mar as pt more calm on recliner. sitter and VMT at bedside.
--- NOTE | 2023-08-10 04:44 | PC.NURSE ---
pt is calm however attempting to remove gown. able to redirect and help put gown back on however pt reattempts. pt is stating where is my injection, i want to sleep. will give prn and reassess.
[2023-08-10] MEDS: traZODone HCL 25 MG HALFTAB PO (04:47)
--- NOTE | 2023-08-10 04:48 | PC.NURSE ---
pt tolerated medication well with water.
--- NOTE | 2023-08-10 04:52 | PC.NURSE ---
pt helped back into hospital bed. warm blanket given. pt reports he is comfortable and wants to sleep. vmt on. sitter at bedside.
[2023-08-10 06:12] VITALS: RESP 16
[2023-08-10] MEDS: lisinopriL 20 MG TABLET PO ×2 (08:04→21:26)
[2023-08-10] MEDS: metFORMIN HCl 500 MG TABLET PO ×2 (08:04→21:26)
[2023-08-10] MEDS: amLODIPine Besylate 2.5 MG TABLET PO (08:04)
[2023-08-10] MEDS: ARIPiprazole 10 MG TABLET PO (08:04)
[2023-08-10] MEDS: Tamsulosin HCL 0.4 MG CAPSULE PO (08:04)
[2023-08-10 08:05] LABS: Creatinine Clr Calc Pharmacy 65.7; Estimated Glomerular Filt Rate > 60
--- NOTE | 2023-08-10 09:53 | PC.NURSE ---
Alert and responsive, denies pain or discomfort, no behaviors noted
[2023-08-10 10:26] VITALS: BP 107/51; PULSE 70; RESP 16; O2SAT 94
--- NOTE | 2023-08-10 11:55 | MHC.CM.ED ---
Patient remains in ER. Insurance auth has been obtained by [facility]. Patient will leave tomorrow 08/10 at 9am. Day [facility] booked. Med [facility] with chart. Patient's daughter, Rylie, made aware via telephone at [phone]. She will relay this info to her mother, Zakia. Jenna from [facility] will provide consents for admission to . will make sure these forms are provided to Zakia. Continue to monitor for d/c needs.
--- NOTE | 2023-08-10 13:45 | PC.NURSE ---
Patient calm and cooperative, eating lunch provided by mom, family at bedside, 1:[address]
[2023-08-10 14:12] VITALS: BP 146/80; PULSE 70; RESP 16; O2SAT 99
--- NOTE | 2023-08-10 15:22 | MHC.CM.ED ---
Patient scheduled to leave for [employer] in [place] tomorrow at 9am. Building concerned about patient having hallucinations and what the treatment plan would be. Dr Tong originally consulted on patient. This concern was brought up to Dr Tong. Per Dr Tong, he started Abilify due to hallucinations and his ongoing treatment plan is to keep him on ability. [employer] made aware. Continue to monitor for d/c needs.
--- NOTE | 2023-08-10 15:51 | PC.NURSE ---
Report taken from Ladonna OWUSU, assumed care of pt at 1500. Pt A&O, skin wnl for ethnicity, respirations even unlabored. Denies pain, offers no complaints. Plan for transfer to [facility] tomorrow. Will continue to monitor.
--- NOTE | 2023-08-10 18:02 | MHC.CM.ED ---
CM called [facility] to obtain booking number for transport tomorrow 08/10 at 9am via [place] to [facility] in [facility]. Booking Number [id number]. CM called Day and gave booking number to dispatch.
[2023-08-10 18:33] VITALS: BP 124/55; PULSE 76; RESP 16; O2SAT 98
--- NOTE | 2023-08-10 19:39 | PC.NURSE ---
This RN assumed pt care @ 1900. Pt calm sitting in bedside chair. Plan of care ongoing.
[2023-08-10] MEDS: Mirtazapine 30 MG TABLET PO (21:26)
[2023-08-10] MEDS: QUEtiapine Fumarate 100 MG TABLET PO (21:26)
[2023-08-10] MEDS: traZODone HCL 100 MG TABLET PO (21:26)
--- NOTE | 2023-08-10 22:08 | PC.NURSE ---
Pt redirectable by electrical manufacturing technician, No meds given at this time, charge and provider cuadra aware. Plan of care ongoing.
[2023-08-11] VITALS (9 sets, daily range): BP systolic 114–137; BP diastolic 62–77; PULSE 64–70; RESP 12–20; TEMP 36.4–36.6; O2SAT 94–98
[2023-08-11] MEDS: diphenhydrAMINE HCL 50 MG/ML VIAL IM (00:12)
[2023-08-11] MEDS: LORazepam 2 MG/ML VIAL IM (00:13)
[2023-08-11] MEDS: OLANZapine 10 MG VIAL IM (00:13)
--- NOTE | 2023-08-11 00:27 | PC.NURSE ---
Pt attempting to hit staff with call hafsa Pt medicated per mar. Plan of care ongoing.
--- NOTE | 2023-08-11 00:54 | PC.NURSE ---
Pt sitting at the side of the bed. Pt refusing vitals, attempting to hit RN with blanket. Plan of care ongoing.
--- NOTE | 2023-08-11 09:31 | MHC.EDTECH ---
pt was found incontinent of urine, pt was sonu cleaned, clean linen and warm blankets given, rn aware
--- NOTE | 2023-08-11 09:41 | MHC.CM.ED ---
Addendum entered by Florina Frias 08/11/23 14:14: Rylie aware. Addendum entered by Florina Frias 08/11/23 10:19: Patient's sig other/HCP, Zakia made aware via telephone with the help of the roll press operator at [phone]. Original Note: Patient remains in ER. Was scheduled to d/c to [facility] in [place]. Patient became agitated and aggressive overnight and required IM medication. D/C cancelled at this time. [facility] is unable to offer a bed at this time unless behaviors are controlled. Maegan MARTÍNEZ has been asked to order a psych consult for medication recommendations. Day MATIAS cancelled. Attempted to call patient's daughter, Rylie via telephone twice. Phone rang, picked up and no one was on the other end. Continue to monitor for d/c needs.
--- NOTE | 2023-08-11 10:16 | PC.NURSE ---
pt still sleeping soundly, unable to waken for morning meds
--- NOTE | 2023-08-11 12:42 | PM.PSYCN ---
History of Present Illness Date of Service: 08/11/2023 Chief Complaint: combative ?uti Reason for Consult: combative behaviors Sources of Information: patient interviewed, chart reviewed and crisis/core team assessment reviewed HPI Narrative: INterim Hx: Pt last night presented as agitated and combative with staff, unable to be redirected. requiring IM olanzapine 10mg, ativan 2mg, benadryl 50mg IM. Pt seen this morning, pt presents as somnolent, somewhat confused and mostly mumbling to self- which is not his usual but this may be related to medications he received last night. Past Psychiatric History: Diagnosed with dementia and schizophrenia [facility] Medical History (Updated 08/11/23 @ 17:01 by Roxanna Souza) Schizophrenia Dementia Diagnostics Vital Signs (24Hr): Vital Signs - 24 hr 08/10/23 14:12 08/10/23 18:33 08/11/23 00:12 Temperature Pulse Rate 70 76 Respiratory Rate 16 16 20 Blood Pressure 146/80 H 124/55 L Pulse Oximetry 99 98 Oxygen Delivery Method Room Air Room Air 08/11/23 00:28 08/11/23 00:43 08/11/23 00:58 Temperature Pulse Rate Respiratory Rate 18 16 16 Blood Pressure Pulse Oximetry Oxygen Delivery Method 08/11/23 07:47 08/11/23 10:06 08/11/23 12:05 Temperature 97.5 F 97.8 F Pulse Rate 64 70 69 Respiratory Rate 20 12 Blood Pressure 137/62 114/77 Pulse Oximetry 96 98 98 Oxygen Delivery Method Room Air Room Air Room Air BMI result Body Mass Index 18.1 Labs 08/02/23 06:19 08/10/23 07:41 Labs: Laboratory Results - last 48 hr 08/10/23 07:41 Creatinine 0.76 Estim Creat Clear Calc 65.7 Estimated GFR > 60 Imaging Radiology Impressions: ITS Impressions Abdomen/Pelvis CT 08/02/23 09:52 IMPRESSION: * No acute imaging abnormalities along the genitourinary tracts. No nephrolithiasis, hydronephrosis or perinephric edema. * Mild prostatomegaly. * The nodular enlargement of the left adrenal gland is likely from an adenoma. If deemed clinically appropriate, pursue follow-up with adrenal washout CT or chemical shift MRI. * The most inferior external iliac chain lymph nodes (nodes of [place]) are mildly enlarged. This is of questionable significance. Head CT 08/02/23 09:52 IMPRESSION: No acute intracranial pathology. 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 Chest X-Ray 08/02/23 11:15 IMPRESSION: 1. Findings are suggestive of COPD. 2. No radiographic signs of acute cardiopulmonary process.. Mental Status Exam Mental Status Exam Narrative: Pt in bed, disheveled, Mumbling, unintelligible. somnolent, suspect s/s to medications he received last night. Medications Medications Current Medications Amlodipine Besylate (Amlodipine Besylate 2.5 Mg Tablet) 2.5 mg PO DAILY [facility]; Protocol Last Admin: 08/10/23 08:04 Dose: 2.5 mg Aripiprazole (Aripiprazole 10 Mg Tablet) 10 mg PO DAILY [facility] Last Admin: 08/10/23 08:04 Dose: 10 mg Lidocaine (Lidocaine 4 % Patch Adh..Patch) 1 patch TRANSDERMA TID PRN; Protocol PRN Reason: Pain, Moderate(Pain Scale 4-6) Last Admin: 08/03/23 14:29 Dose: 1 patch Lisinopril (Lisinopril 20 Mg Tablet) 20 mg PO BID [facility]; Protocol Last Admin: 08/10/23 21:26 Dose: 20 mg Metformin HCl (Metformin Hcl 500 Mg Tablet) 500 mg PO BID [facility] Last Admin: 08/10/23 21:26 Dose: 500 mg Mirtazapine (Mirtazapine 30 Mg Tablet) 30 mg PO BEDTIME [facility] Last Admin: 08/10/23 21:26 Dose: 30 mg Quetiapine Fumarate (Quetiapine Fumarate 100 Mg Tablet) 100 mg PO BEDTIME [facility] Last Admin: 08/10/23 21:26 Dose: 100 mg Tamsulosin HCl (Tamsulosin Hcl 0.4 Mg Capsule) 0.4 mg PO DAILY [facility] Last Admin: 08/10/23 08:04 Dose: 0.4 mg Trazodone HCl (Trazodone Hcl 25 Mg Halftab) 25 mg PO BID PRN PRN Reason: anxiety Last Admin: 08/10/23 04:47 Dose: 25 mg Trazodone HCl (Trazodone Hcl 100 Mg Tablet) 100 mg PO BEDTIME [facility] Last Admin: 08/10/23 21:26 Dose: 100 mg Allergies Allergies Allergy/AdvReac Type Severity Reaction Status Date / Time No Known Allergies Allergy Verified 08/02/23 06:27 Assessment & Plan Assessment & Plan (1) Major neurocognitive disorder: Status: Acute Code(s): F03.90 - Unspecified dementia, unspecified severity, without behavioral disturbance, psychotic disturbance, mood disturbance, and anxiety Plan Mr. Jordan has been in the ED since 07/2023. He was found to not have capacity to make medical decisions and to have advanced dementia. He was awaiting placement in LTC facility. However, he had episode of combative behaviors last night requiring IM medications including olanzapine 10mg, ativan 2mg, benadryl 50mg. today, he presents as somnolent and sedated. PLAN 1. if need to use IM medication, recommend lowest effective dose to avoid over sedation next day. would recommend olanzapine 5mg IM and ativan 1-2mg but do not administer benadryl as it increases risk for delirum in individuals with dementia. 2. won't change dose of antipsychotic, mainly seroquel until pt is more awake. then will be able to add second dose of seroquel at around 3pm when pt tends to sundown and have more behavioral issues. 3. will see pt again tomorrow. Total time managing care of this patient today ____ minutes.
[2023-08-11] MEDS: lisinopriL 20 MG TABLET PO ×2 (13:36→21:49)
[2023-08-11] MEDS: amLODIPine Besylate 2.5 MG TABLET PO (13:36)
[2023-08-11] MEDS: ARIPiprazole 10 MG TABLET PO (13:36)
[2023-08-11] MEDS: Tamsulosin HCL 0.4 MG CAPSULE PO (13:36)
[2023-08-11] MEDS: metFORMIN HCl 500 MG TABLET PO ×2 (14:27→21:49)
[2023-08-11] MEDS: Mirtazapine 30 MG TABLET PO (21:48)
[2023-08-11] MEDS: QUEtiapine Fumarate 100 MG TABLET PO (21:48)
[2023-08-11] MEDS: traZODone HCL 100 MG TABLET PO (21:49)
--- NOTE | 2023-08-11 23:23 | PC.NURSE ---
this rn assumed care of pt, pt resting in stretcher, eyes closed, respirations even and unlabored, call pereyra within reach.
--- NOTE | 2023-08-11 23:23 | PC.NURSE ---
this rn assumed care of pt, pt resting in stretcher, eyes closed, respirations even and unlabored. sitter at bedside. camera in place for safety.
[2023-08-12] VITALS (8 sets, daily range): BP systolic 108–137; BP diastolic 51–63; PULSE 60–86; RESP 14–20; TEMP 36.4–36.7; O2SAT 97–99
--- NOTE | 2023-08-12 00:33 | PC.NURSE ---
pt noted to have small urinary incontinence, appliance line assembler at bedside, pt calm and cooperative and new pads placed under pt.
--- NOTE | 2023-08-12 06:24 | PC.NURSE ---
director of procurement at bedside, pt calm and cooperative, pt allowing vitals at this time.
[2023-08-12 08:41] LABS: Glucose, Whole Blood 119 mg/dL (60-115)
[2023-08-12] MEDS: amLODIPine Besylate 2.5 MG TABLET PO (10:54)
[2023-08-12] MEDS: metFORMIN HCl 500 MG TABLET PO ×2 (10:54→21:17)
[2023-08-12] MEDS: Tamsulosin HCL 0.4 MG CAPSULE PO (10:54)
[2023-08-12] MEDS: ARIPiprazole 10 MG TABLET PO (10:54)
[2023-08-12] MEDS: lisinopriL 20 MG TABLET PO ×2 (10:54→21:21)
--- NOTE | 2023-08-12 13:24 | MHC.CM.ED ---
Patient remains in ER. Roxanna, revenue stamper evaulated patient on 08/10. Roxanna will re-see patient today. No bed offers at this time. Continue to monitor for d/c needs.
[2023-08-12 13:33] LABS: Glucose, Whole Blood 82 mg/dL (60-115)
--- NOTE | 2023-08-12 19:28 | PC.NURSE ---
this rn assumed care of pt, pt sitting up in hospital bed at this time, no acute distress noted. call pereyra within reach.
[2023-08-12] MEDS: Mirtazapine 30 MG TABLET PO (21:17)
[2023-08-12] MEDS: traZODone HCL 100 MG TABLET PO (21:17)
[2023-08-12] MEDS: QUEtiapine Fumarate 100 MG TABLET PO (21:17)
--- NOTE | 2023-08-12 21:22 | PC.NURSE ---
pt medicated per mar, pt tolerated well with water.
[2023-08-13 06:14] VITALS: BP 110/39; PULSE 62; RESP 16; TEMP 36.7; O2SAT 97
[2023-08-13] MEDS: Tamsulosin HCL 0.4 MG CAPSULE PO (08:50)
[2023-08-13] MEDS: metFORMIN HCl 500 MG TABLET PO ×2 (08:50→20:58)
[2023-08-13] MEDS: lisinopriL 20 MG TABLET PO ×2 (08:50→20:58)
[2023-08-13] MEDS: ARIPiprazole 10 MG TABLET PO (08:50)
[2023-08-13] MEDS: amLODIPine Besylate 2.5 MG TABLET PO (08:50)
--- NOTE | 2023-08-13 08:54 | PC.NURSE ---
medication administered per provider order w/ water. no difficulties noted. pt resting comfortably w/ the lights dimmed in no apparent distress. no sob/wob noted. respirations even and unlabored. bed alarm turned on for safety precautions.
--- NOTE | 2023-08-13 09:24 | MHC.CM.ED ---
Patient remains in ER. Received IM meds on 08/10. Medication changes made by Willem Mcknight NP. Patient has dementia at baseline but has been compliant with care. Clinical updates sent to facilities still following. Continue to monitor for d/c needs.
[2023-08-13 10:43] VITALS: BP 135/51; PULSE 62; RESP 16; TEMP 36.6; O2SAT 97
--- NOTE | 2023-08-13 11:51 | PM.PSYCN ---
History of Present Illness Date of Service: 08/13/2023 Chief Complaint: combative ?uti Discussed with referring provider: Yes Sources of Information: patient interviewed, chart reviewed and crisis/core team assessment reviewed HPI Narrative: Interim Hx: pt presents as much less sedated, not delirious. He reports he is doing well. Other than that he states he has been here in the hospital for 8 months, which is not the case. He also tells this appeals writer that he does not know why he is here. No combative behaviors, but tendency to be more confused in evenings, will add dose of seroquel but will d/c abilify. Past Psychiatric History: Diagnosed with dementia and schizophrenia Review of Systems Review of Systems Yes all other systems are reviewed and are negative [facility] Medical History (Updated 08/11/23 @ 17:01 by Roxanna Souza) Schizophrenia Dementia Diagnostics Vital Signs (24Hr): Vital Signs - 24 hr 08/12/23 15:01 08/12/23 18:26 08/12/23 21:20 Temperature 97.7 F 97.6 F 97.6 F Pulse Rate 63 64 86 Respiratory Rate 18 14 18 Blood Pressure 128/61 112/52 L 137/54 L Pulse Oximetry 98 99 98 Oxygen Delivery Method Room Air Room Air Room Air 08/12/23 21:21 08/13/23 06:14 08/13/23 10:43 Temperature 98.1 F 97.9 F Pulse Rate 62 62 Respiratory Rate 16 16 Blood Pressure 137/54 L 110/39 L 135/51 L Pulse Oximetry 97 97 Oxygen Delivery Method Room Air Room Air BMI result Body Mass Index 18.1 Labs 08/02/23 06:19 08/10/23 07:41 Labs: Laboratory Results - last 48 hr 08/12/23 08/12/23 08:20 13:29 POC Glucose 119 H 82 Imaging Radiology Impressions: ITS Impressions Abdomen/Pelvis CT 08/02/23 09:52 IMPRESSION: * No acute imaging abnormalities along the genitourinary tracts. No nephrolithiasis, hydronephrosis or perinephric edema. * Mild prostatomegaly. * The nodular enlargement of the left adrenal gland is likely from an adenoma. If deemed clinically appropriate, pursue follow-up with adrenal washout CT or chemical shift MRI. * The most inferior external iliac chain lymph nodes (nodes of [place]) are mildly enlarged. This is of questionable significance. Head CT 08/02/23 09:52 IMPRESSION: No acute intracranial pathology. 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 Chest X-Ray 08/02/23 11:15 IMPRESSION: 1. Findings are suggestive of COPD. 2. No radiographic signs of acute cardiopulmonary process.. Mental Status Exam Mental Status Exam Narrative: Pt in bed, disheveled, Mumbling, unintelligible. somnolent, suspect s/s to medications he received last night. Medications Medications Current Medications Amlodipine Besylate (Amlodipine Besylate 2.5 Mg Tablet) 2.5 mg PO DAILY [facility]; Protocol Last Admin: 08/13/23 08:50 Dose: 2.5 mg Aripiprazole (Aripiprazole 10 Mg Tablet) 10 mg PO DAILY [facility] Last Admin: 08/13/23 08:50 Dose: 10 mg Lidocaine (Lidocaine 4 % Patch Adh..Patch) 1 patch TRANSDERMA TID PRN; Protocol PRN Reason: Pain, Moderate(Pain Scale 4-6) Last Admin: 08/03/23 14:29 Dose: 1 patch Lisinopril (Lisinopril 20 Mg Tablet) 20 mg PO BID [facility]; Protocol Last Admin: 08/13/23 08:50 Dose: 20 mg Metformin HCl (Metformin Hcl 500 Mg Tablet) 500 mg PO BID [facility] Last Admin: 08/13/23 08:50 Dose: 500 mg Mirtazapine (Mirtazapine 30 Mg Tablet) 30 mg PO BEDTIME [facility] Last Admin: 08/12/23 21:17 Dose: 30 mg Quetiapine Fumarate (Quetiapine Fumarate 100 Mg Tablet) 100 mg PO BEDTIME [facility] Last Admin: 08/12/23 21:17 Dose: 100 mg Tamsulosin HCl (Tamsulosin Hcl 0.4 Mg Capsule) 0.4 mg PO DAILY [facility] Last Admin: 08/13/23 08:50 Dose: 0.4 mg Trazodone HCl (Trazodone Hcl 25 Mg Halftab) 25 mg PO BID PRN PRN Reason: anxiety Last Admin: 08/10/23 04:47 Dose: 25 mg Trazodone HCl (Trazodone Hcl 100 Mg Tablet) 100 mg PO BEDTIME [facility] Last Admin: 08/12/23 21:17 Dose: 100 mg Allergies Allergies Allergy/AdvReac Type Severity Reaction Status Date / Time No Known Allergies Allergy Verified 08/02/23 06:27 Assessment & Plan Assessment & Plan (1) Major neurocognitive disorder: Status: Acute Code(s): F03.90 - Unspecified dementia, unspecified severity, without behavioral disturbance, psychotic disturbance, mood disturbance, and anxiety Plan Mr. Jordan has been in the ED since 07/2023. He was found to not have capacity to make medical decisions and to have advanced dementia. He was awaiting placement in LTC facility. However, he had episode of combative behaviors last night requiring IM medications including olanzapine 10mg, ativan 2mg, benadryl 50mg. today, he presents as somnolent and sedated. PLAN 1. if need to use IM medication, recommend lowest effective dose to avoid over sedation next day. would recommend olanzapine 5mg IM and ativan 1-2mg but DO NOT administer benadryl as it increases risk for delirium in individuals with dementia. 2. increase seroquel at 3pm 50mg po and continue bedtime dose. will d/c ivonne. Total time managing care of this patient today ____ minutes.
[2023-08-13 12:23] VITALS: BP 131/58; PULSE 60; RESP 18; TEMP 36.6; O2SAT 98
[2023-08-13 14:00] VITALS: BP 110/50; PULSE 65; RESP 18; TEMP 36.9; O2SAT 97
[2023-08-13] MEDS: QUEtiapine Fumarate 50 MG TABLET PO ×2 (14:47→17:02)
--- NOTE | 2023-08-13 16:26 | PC.NURSE ---
Patient upset wants to go home rudy MARTÍNEZ for medications to calm him down had just given him seroquel 50mg with no effect. Will attempt to give him more when he calms down.
--- NOTE | 2023-08-13 17:53 | PC.NURSE ---
Patient upset he wants to go home. Patient yelling police! help! call the police! will continue to re-direct. Hopefully he will quiet down.
[2023-08-13 20:53] VITALS: BP 136/85; PULSE 95; RESP 18; TEMP 36.8; O2SAT 98
[2023-08-13 20:58] VITALS: BP 136/85
[2023-08-13] MEDS: traZODone HCL 100 MG TABLET PO (20:58)
[2023-08-13] MEDS: QUEtiapine Fumarate 100 MG TABLET PO (20:58)
[2023-08-13] MEDS: Ziprasidone Mesylate 20 MG VIAL IM (23:03)
--- NOTE | 2023-08-13 23:31 | PC.NURSE ---
Pt increasingly confused, yelling out for Zakia and bleieves is at home. Pt continues to attempt to get out of bed, unable to redirect. Attempted to give PRN seroquel but pt refusing, became threatening, swatting at staff, yelling for the police. Security called in attempt to help redirect pt but agitation increased. Provider notified and ordered Geodon IM, which was administered. Pt continues to sit at side of bed and refusing to lay down or allow staff to assist him. Staff sitting at bedside but seems to irritate even more. staff sitting close by to ensure safety.
[2023-08-14 06:14] VITALS: BP 148/71; PULSE 61; RESP 16; O2SAT 96
[2023-08-14 07:17] LABS: Glucose, Whole Blood 103 mg/dL (60-115)
[2023-08-14] MEDS: metFORMIN HCl 500 MG TABLET PO ×2 (08:03→20:19)
[2023-08-14 08:07] VITALS: BP 128/55
[2023-08-14] MEDS: lisinopriL 20 MG TABLET PO ×2 (08:07→20:19)
[2023-08-14 08:08] VITALS: BP 128/55
[2023-08-14] MEDS: amLODIPine Besylate 2.5 MG TABLET PO (08:08)
[2023-08-14] MEDS: Tamsulosin HCL 0.4 MG CAPSULE PO (08:08)
[2023-08-14 14:36] VITALS: BP 104/49; PULSE 61; RESP 14; TEMP 36.3; O2SAT 97
[2023-08-14] MEDS: QUEtiapine Fumarate 50 MG TABLET PO (15:25)
[2023-08-14 18:37] VITALS: BP 100/50; PULSE 72; RESP 16; TEMP 36.8; O2SAT 98
[2023-08-14 20:19] VITALS: BP 100/50
[2023-08-14] MEDS: traZODone HCL 100 MG TABLET PO (20:19)
[2023-08-14] MEDS: QUEtiapine Fumarate 100 MG TABLET PO (20:20)
[2023-08-15 05:52] VITALS: RESP 18
[2023-08-15 10:19] VITALS: PULSE 79; RESP 18; TEMP 36.6; O2SAT 98
[2023-08-15 11:32] VITALS: BP 174/78
[2023-08-15] MEDS: lisinopriL 20 MG TABLET PO ×2 (11:32→21:05)
[2023-08-15] MEDS: amLODIPine Besylate 2.5 MG TABLET PO (11:32)
[2023-08-15] MEDS: metFORMIN HCl 500 MG TABLET PO ×2 (11:33→21:05)
[2023-08-15] MEDS: Tamsulosin HCL 0.4 MG CAPSULE PO (11:33)
[2023-08-15 16:13] VITALS: BP 173/71; PULSE 83; RESP 14; TEMP 36.4; O2SAT 97
[2023-08-15] MEDS: QUEtiapine Fumarate 50 MG TABLET PO (16:34)
[2023-08-15 21:05] VITALS: BP 130/55
[2023-08-15] MEDS: QUEtiapine Fumarate 100 MG TABLET PO (21:05)
[2023-08-15] MEDS: traZODone HCL 100 MG TABLET PO (21:05)
[2023-08-15 21:07] VITALS: BP 130/55; PULSE 77; RESP 18; O2SAT 98
--- NOTE | 2023-08-15 22:38 | PC.NURSE ---
pt sitting in recliner, no distress noted at this time
--- NOTE | 2023-08-16 00:05 | PC.NURSE ---
pt walking around unit, yelling at staff, attempting to go in to other pt rooms. not easily redirectable at this time
[2023-08-16] MEDS: traZODone HCL 25 MG HALFTAB PO (00:36)
[2023-08-16] MEDS: QUEtiapine Fumarate 50 MG TABLET PO ×3 (00:36→16:31)
--- NOTE | 2023-08-16 00:45 | PC.NURSE ---
pt medicated per MAY. now resting comfortably in bed, breathing even and unlabored, no apparent distress at this time. call hafsa w/in reach
--- NOTE | 2023-08-16 06:39 | PC.NURSE ---
pt awake at this time, pouring urine onto table from urinal. assist with clean up
[2023-08-16 08:01] VITALS: BP 111/46; PULSE 68; RESP 14; O2SAT 96
[2023-08-16] MEDS: amLODIPine Besylate 2.5 MG TABLET PO (08:03)
[2023-08-16] MEDS: Tamsulosin HCL 0.4 MG CAPSULE PO (08:03)
[2023-08-16] MEDS: metFORMIN HCl 500 MG TABLET PO ×2 (08:03→20:56)
[2023-08-16] MEDS: lisinopriL 20 MG TABLET PO ×2 (08:04→20:56)
--- NOTE | 2023-08-16 08:06 | PC.NURSE ---
medicated per the MAR, patient appears to be resting quietly in room at this time, respirations even and unlabored. utilized PRN medications. patient observer remains at bedside.
--- NOTE | 2023-08-16 08:55 | MHC.CM.ED ---
Patient remains in ER. Received IM Geodon on 08/12. Clinical updates sent to facilities still following. Continue to monitor for d/c needs.
[2023-08-16 15:14] VITALS: BP 137/69; PULSE 62; RESP 14; TEMP 36.6; O2SAT 99
--- NOTE | 2023-08-16 19:15 | PC.NURSE ---
this rn assumed care of pt, pt sitting in hospital bed with dinner. no acute distress noted, pt calm and cooperative. denies pain at this time.
[2023-08-16 20:55] VITALS: BP 116/75; PULSE 66; RESP 17; TEMP 36.7; O2SAT 98
[2023-08-16] MEDS: QUEtiapine Fumarate 100 MG TABLET PO (20:56)
[2023-08-16] MEDS: traZODone HCL 100 MG TABLET PO (20:56)
--- NOTE | 2023-08-16 20:57 | PC.NURSE ---
pt medicated per mar, pt tolerated well with water.
[2023-08-17 06:26] VITALS: BP 161/58; PULSE 65; RESP 18; TEMP 36.3; O2SAT 96
--- NOTE | 2023-08-17 06:28 | PC.NURSE ---
pt awake and alert at this time, vss. no acute distress noted.
--- NOTE | 2023-08-17 06:38 | MHC.EDTECH ---
[facility] Pt offered a clean hospital gown but declined at this time.
[2023-08-17] MEDS: amLODIPine Besylate 2.5 MG TABLET PO (08:38)
[2023-08-17] MEDS: metFORMIN HCl 500 MG TABLET PO ×2 (08:38→20:30)
[2023-08-17] MEDS: lisinopriL 20 MG TABLET PO ×2 (08:38→20:30)
[2023-08-17] MEDS: Tamsulosin HCL 0.4 MG CAPSULE PO (08:38)
--- NOTE | 2023-08-17 08:53 | PC.NURSE ---
this RN resumed care of pt at 0700. medications administered per provider order - pills whole w/ water. no difficulties noted. pt ate 100% of breakfast but asking for more food - pt provided w/ sandwich/crackers/gingerale. pt calm/cooperative. denies pain. no sob/wob noted. respirations even and unlabored. per CM - pt still pending manager long term care care. plan of care ongoing. call pereyra placed within reach.
[2023-08-17 11:00] LABS: Creatinine Clr Calc Pharmacy 73.4; Estimated Glomerular Filt Rate > 60
[2023-08-17 15:13] VITALS: BP 152/65; PULSE 68; RESP 17; TEMP 36.4; O2SAT 99
--- NOTE | 2023-08-17 15:32 | P.CNPS_ITS ---
History of Present Illness Date of Service: 08/17/2023 Chief Complaint: combative ?uti Reason for Consult: combative behaviors Sources of Information: patient interviewed, chart reviewed and crisis/core team assessment reviewed HPI Narrative: Interim Hx: pt had last chemical restraint on 08/12 geodone 20mg IM. Since then no significant behavioral concerns. Pt seeen in the ED. He is tolerating increase of seroquel. He reports he is being kept here because his has been threatened to be killed if she allows him to come back. Pt explained that he has cognitive impairments and other needs that not able to care for him and she would like him to go to a place where he has more supports. When asked if he is having cravings to use cocaine, pt reports he did not use regularly and does not crave it. He reports only for parties, my kids would get me some beers and sometimes cocaine. He is not oriented to situation, month or year and this is his baseline. He is not able to retain much information given during this hospital stay. Past Psychiatric History: Diagnosed with dementia and schizophrenia OP: used to see Scotty Wilkins. Past trials: abilify, seroquel [facility] Medical History (Updated 08/11/23 @ 17:01 by Roxanna Souza) Schizophrenia Dementia Diagnostics Vital Signs (24Hr): Vital Signs - 24 hr 08/16/23 20:55 08/17/23 06:26 08/17/23 15:13 Temperature 98.0 F 97.3 F 97.6 F Pulse Rate 66 65 68 Respiratory Rate 17 18 17 Blood Pressure 116/75 161/58 H 152/65 H Pulse Oximetry 98 96 99 Oxygen Delivery Method Room Air Room Air Room Air BMI result Body Mass Index 18.1 Labs 08/02/23 06:19 08/17/23 10:43 Labs: Laboratory Results - last 48 hr 08/17/23 10:43 Creatinine 0.68 Estim Creat Clear Calc 73.4 Estimated GFR > 60 Imaging Radiology Impressions: ITS Impressions Abdomen/Pelvis CT 08/02/23 09:52 IMPRESSION: * No acute imaging abnormalities along the genitourinary tracts. No nephrolithiasis, hydronephrosis or perinephric edema. * Mild prostatomegaly. * The nodular enlargement of the left adrenal gland is likely from an adenoma. If deemed clinically appropriate, pursue follow-up with adrenal washout CT or chemical shift MRI. * The most inferior external iliac chain lymph nodes (nodes of [place]) are mildly enlarged. This is of questionable significance. Head CT 08/02/23 09:52 IMPRESSION: No acute intracranial pathology. 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 Chest X-Ray 08/02/23 11:15 IMPRESSION: 1. Findings are suggestive of COPD. 2. No radiographic signs of acute cardiopulmonary process.. Mental Status Exam Mental Status Exam Narrative: Appearance: wearing hospital gown, long bear, in NAD Behavior: cooperative Psychomotor: no agitation or retardation noted Speech: clear, normal rate/rhythm/volume, spontaneous. TP: goal oriented wanting to go home TC:paranoid ideas of people threatening to kill his if he returns there, thinks this is reason for him to be here Mood: good Affect: congruent SI: denies HI: denies VH/AH: no overt signs of responding to internally preoccupied Delusions: paranoid delusions Insight/judgment: impaired x 2. Memory/cog: alert, oriented to place, not situation, month or year. MOCA 11/25. Medications Medications Current Medications Amlodipine Besylate (Amlodipine Besylate 2.5 Mg Tablet) 2.5 mg PO DAILY [facility]; Protocol Last Admin: 08/17/23 08:38 Dose: 2.5 mg Lidocaine (Lidocaine 4 % Patch Adh..Patch) 1 patch TRANSDERMA TID PRN; Protocol PRN Reason: Pain, Moderate(Pain Scale 4-6) Last Admin: 08/03/23 14:29 Dose: 1 patch Lisinopril (Lisinopril 20 Mg Tablet) 20 mg PO BID [facility]; Protocol Last Admin: 08/17/23 08:38 Dose: 20 mg Metformin HCl (Metformin Hcl 500 Mg Tablet) 500 mg PO BID [facility] Last Admin: 08/17/23 08:38 Dose: 500 mg Quetiapine Fumarate (Quetiapine Fumarate 100 Mg Tablet) 100 mg PO BEDTIME [facility] Last Admin: 08/16/23 20:56 Dose: 100 mg Quetiapine Fumarate (Quetiapine Fumarate 50 Mg Tablet) 50 mg PO Q6H PRN PRN Reason: agitation Last Admin: 08/16/23 08:03 Dose: 50 mg Quetiapine Fumarate (Quetiapine Fumarate 100 Mg Tablet) 100 mg PO DAILY@1500 [facility] Tamsulosin HCl (Tamsulosin Hcl 0.4 Mg Capsule) 0.4 mg PO DAILY [facility] Last Admin: 08/17/23 08:38 Dose: 0.4 mg Trazodone HCl (Trazodone Hcl 25 Mg Halftab) 25 mg PO BID PRN PRN Reason: anxiety Last Admin: 08/16/23 00:36 Dose: 25 mg Trazodone HCl (Trazodone Hcl 100 Mg Tablet) 100 mg PO BEDTIME [facility] Last Admin: 08/16/23 20:56 Dose: 100 mg Allergies Allergies Allergy/AdvReac Type Severity Reaction Status Date / Time No Known Allergies Allergy Verified 08/02/23 06:27 Assessment & Plan Assessment & Plan (1) Major neurocognitive disorder: Status: Acute Code(s): F03.90 - Unspecified dementia, unspecified severity, without behavioral disturbance, psychotic disturbance, mood disturbance, and anxiety (2) Schizophrenia: Status: Acute Code(s): F20.9 - Schizophrenia, unspecified Plan Mr. Jordan is a 78 year-old with hx of schizophrenia and dementia. He is awaiting placement. He presents as calmer, still with paranoid delusions of being here because his is being threatened. He would not explain more as he reports if I tell you more they will kill her. Increase depakote at 3pm to 100mg continue 100mg po qhs. He was on RODRIGUEZ Abilify Maintena 400mg IM monthly. Paranoid delusions may be more related to schizophrenia than dementia. Will obtain collateral information from from his former psychiatric provider Scotty Wilkins NP. May need higher potency antipsychotic. Total time managing care of this patient today ____ minutes.
[2023-08-17] MEDS: QUEtiapine Fumarate 100 MG TABLET PO ×2 (15:46→20:30)
--- NOTE | 2023-08-17 15:47 | PC.NURSE ---
vss and up to date. pt medicated per provider order. resting comfortably in no apparent distress. sitting upright in recliner. no sob/wob noted. respirations even and unlabored. plan of care ongoing. call pereyra placed within reach.
[2023-08-17] MEDS: traZODone HCL 100 MG TABLET PO (20:30)
[2023-08-18 00:11] VITALS: BP 133/60; PULSE 85; RESP 16; TEMP 36.7; O2SAT 98
--- NOTE | 2023-08-18 04:03 | PC.NURSE ---
pt redirected back to bed multiple times throughout the night, pt calm, cooperative, usually easy to get back into bed. Cammy PCT ambulating with patient around ED as he was c/o back pain and restlessness, pt ambulating with a steady gait. calm, redirectable. pt has not required any IM medications throughout the night. plan of care ongoing.
[2023-08-18 06:19] VITALS: BP 137/61; PULSE 80; RESP 17; TEMP 36.7; O2SAT 98
[2023-08-18 09:31] VITALS: BP 123/55; PULSE 70; RESP 20; O2SAT 97
[2023-08-18 09:35] VITALS: BP 123/55
[2023-08-18] MEDS: Tamsulosin HCL 0.4 MG CAPSULE PO (09:35)
[2023-08-18] MEDS: metFORMIN HCl 500 MG TABLET PO ×2 (09:35→20:12)
[2023-08-18] MEDS: amLODIPine Besylate 2.5 MG TABLET PO (09:35)
[2023-08-18] MEDS: lisinopriL 20 MG TABLET PO ×2 (09:35→20:13)
--- NOTE | 2023-08-18 10:39 | MHC.CM.ED ---
Patient remains in ER. No IM meds since 08/12. No sitter. Clinical updates sent to facilities still following patient. Continue to monitor for d/c needs.
--- NOTE | 2023-08-18 13:35 | PC.NURSE ---
Assumed care of this patient at 1100, Patient resting quietly either sitting in chair or laying in bed at this time.
[2023-08-18 14:19] VITALS: BP 168/67; PULSE 78; RESP 15; O2SAT 95
[2023-08-18] MEDS: QUEtiapine Fumarate 100 MG TABLET PO ×2 (14:25→20:13)
[2023-08-18 20:13] VITALS: BP 130/69
[2023-08-18] MEDS: traZODone HCL 100 MG TABLET PO (20:13)
--- NOTE | 2023-08-18 21:24 | MHC.EDTECH ---
Patient given shower and total bed changed
--- NOTE | 2023-08-19 03:41 | PC.NURSE ---
Patient reports generalized pain 4/10 at present, verbal order obtained for Tylenol 650 mg PO.
[2023-08-19] MEDS: Acetaminophen 325 MG TABLET 650 MG PO (03:44)
[2023-08-19 05:47] VITALS: BP 104/66; PULSE 100; RESP 16; O2SAT 96
--- NOTE | 2023-08-19 06:03 | PC.NURSE ---
This RN assumed care of patient at 19:00. Patient calm, cooperative, medications administered per MAR, patient takes medications whole with water, no difficulty swallowing noted. Patient medicated with Lidocaine 4% patch for c/o pain in left knee and Tylenol 650 mg PO for c/o 4/10 generalized pain with good effect, patient denies any pain at present. Patient attempted to get up for a recliner chair/bed multiple times throughout the night, but easily redirected back to a recliner chair/bed. Patient did not require PRN medications. Camera monitor at bedside. Call pereyra in patient's reach, plan of care ongoing.
[2023-08-19] MEDS: Tamsulosin HCL 0.4 MG CAPSULE PO (09:45)
[2023-08-19] MEDS: metFORMIN HCl 500 MG TABLET PO ×2 (09:45→20:46)
[2023-08-19 09:46] VITALS: BP 128/52
[2023-08-19] MEDS: lisinopriL 20 MG TABLET PO ×2 (09:46→20:45)
[2023-08-19] MEDS: amLODIPine Besylate 2.5 MG TABLET PO (09:46)
[2023-08-19 11:13] VITALS: BP 120/61; PULSE 71; RESP 16; O2SAT 98
[2023-08-19] MEDS: QUEtiapine Fumarate 100 MG TABLET PO ×2 (14:32→14:35)
[2023-08-19 14:58] VITALS: BP 103/50; PULSE 81; RESP 16; TEMP 35.3; O2SAT 100
--- NOTE | 2023-08-19 15:34 | PC.NURSE ---
pt temporally 95.6 Fifi MARTÍNEZ notified, pt in bed with warm blanket taking a nap.
[2023-08-19 16:32] VITALS: TEMP 36.2
[2023-08-19] MEDS: traZODone HCL 100 MG TABLET PO (20:45)
--- NOTE | 2023-08-19 21:07 | PC.NURSE ---
pt ate dinner tray, using walker and standby assist pt ambulated to bathroom back to hospital bed. pt positioned self for comfort on bed, new warm blanket provided.
[2023-08-20 04:15] VITALS: BP 102/71; PULSE 104; RESP 16; O2SAT 92
[2023-08-20] MEDS: metFORMIN HCl 500 MG TABLET PO ×2 (08:09→21:21)
[2023-08-20] MEDS: lisinopriL 20 MG TABLET PO ×2 (08:09→21:21)
[2023-08-20] MEDS: amLODIPine Besylate 2.5 MG TABLET PO (08:09)
[2023-08-20] MEDS: Tamsulosin HCL 0.4 MG CAPSULE PO (08:09)
--- NOTE | 2023-08-20 09:02 | PC.NURSE ---
Calm and cooperative, ate well for breakfast, ambulating with wheeled walker. Po meds as ordered, denies pain or discomfort
--- NOTE | 2023-08-20 10:15 | MHC.CM.ED ---
Patient remains in ER. Anticipate there will not be any bed offers for LTC until Wednesday due to [facility]. Ifeoma Xiao CM director aware. Patient's daughter, Rylie aware. Continue to monitor for d/c needs.
[2023-08-20 11:24] VITALS: BP 123/50; PULSE 76; RESP 16; TEMP 37.6; O2SAT 97
[2023-08-20 14:00] VITALS: BP 134/78; PULSE 77; RESP 18; O2SAT 98
[2023-08-20] MEDS: QUEtiapine Fumarate 100 MG TABLET PO ×2 (14:39)
[2023-08-20] MEDS: traZODone HCL 100 MG TABLET PO (21:21)
[2023-08-21 01:12] VITALS: RESP 16
--- NOTE | 2023-08-21 02:34 | PC.NURSE ---
Pt has been calm and cooperative through out the night, sitting in the recliner chair. Currently sleeping. No apparent distress noted. Breaths are even regular and unlabored with equal chest rises. Monitoring is ongoing.
[2023-08-21 05:10] VITALS: BP 146/65; PULSE 75; RESP 16; TEMP 36.6; O2SAT 97
--- NOTE | 2023-08-21 05:11 | MHC.EDTECH ---
Assisted Pt with urinal. Vital signs taken. Pt back to bed, call pereyra within reach.
[2023-08-21 11:32] VITALS: BP 129/63
[2023-08-21] MEDS: lisinopriL 20 MG TABLET PO ×2 (11:32→21:20)
[2023-08-21] MEDS: metFORMIN HCl 500 MG TABLET PO ×2 (11:32→21:20)
[2023-08-21] MEDS: amLODIPine Besylate 2.5 MG TABLET PO (11:32)
[2023-08-21] MEDS: Tamsulosin HCL 0.4 MG CAPSULE PO (11:33)
[2023-08-21 11:34] VITALS: BP 129/63; PULSE 71; RESP 16; O2SAT 96
[2023-08-21 15:19] VITALS: BP 119/57; PULSE 65; RESP 18; TEMP 36.5; O2SAT 98
[2023-08-21] MEDS: QUEtiapine Fumarate 100 MG TABLET PO ×2 (15:58→21:20)
[2023-08-21] MEDS: traZODone HCL 100 MG TABLET PO (21:20)
--- NOTE | 2023-08-21 22:30 | PC.NURSE ---
pt resting comfortably in bed with eyes closed, breathing even and unlabored. no apparent distress noted at this time. call hafsa w/in reach
--- NOTE | 2023-08-22 00:47 | PC.NURSE ---
pt up walking around for 10 minutes, calm and redirectable back to bed
--- NOTE | 2023-08-22 03:29 | PC.NURSE ---
pt walking the halls, no distress at this time
--- NOTE | 2023-08-22 04:48 | MHC.EDTECH ---
pt asked for food. Florence and soda given. Pt redirected back to room.
[2023-08-22] MEDS: Lidocaine 4 % Patch ADH..PATCH 1 PATCH TRANSDERMA (08:09)
[2023-08-22] MEDS: metFORMIN HCl 500 MG TABLET PO ×2 (08:09→20:37)
[2023-08-22] MEDS: Tamsulosin HCL 0.4 MG CAPSULE PO (08:10)
[2023-08-22 08:12] VITALS: BP 142/65
[2023-08-22] MEDS: lisinopriL 20 MG TABLET PO ×2 (08:12→20:37)
[2023-08-22] MEDS: amLODIPine Besylate 2.5 MG TABLET PO (08:12)
[2023-08-22 08:16] VITALS: BP 142/65; PULSE 108; RESP 16; TEMP 36.8; O2SAT 97
[2023-08-22] MEDS: QUEtiapine Fumarate 100 MG TABLET PO ×2 (15:36→20:37)
[2023-08-22 17:24] VITALS: BP 134/97; PULSE 96; RESP 18; TEMP 37; O2SAT 98
--- NOTE | 2023-08-22 18:23 | PC.NURSE ---
patient has been extremely agitated for pretty much most of the shift, constantly leaving room, redirecting occasionally working. family did come and visit and brought snacks which helped. camera is intact and will alarm when he moves out of range.
[2023-08-22] MEDS: traZODone HCL 100 MG TABLET PO (20:37)
[2023-08-22 20:42] VITALS: BP 111/72; PULSE 83; RESP 18; TEMP 36.6; O2SAT 98
--- NOTE | 2023-08-22 20:43 | PC.NURSE ---
pt calm and cooperative, sandwich was given per pt request
--- NOTE | 2023-08-22 23:08 | MHC.EDTECH ---
This tech took over care of patient at 2300,hourly rounds completed,patient is laying in bed at this time,camera in room
--- NOTE | 2023-08-23 00:09 | MHC.EDTECH ---
Patient ambulated around the ER nurses station with a walker and a 1 assist,patient has a steady gait.
[2023-08-23 05:31] VITALS: RESP 18
--- NOTE | 2023-08-23 05:32 | MHC.EDTECH ---
Hourly rounds completed,attempted to get vitals patient refused,RN was made aware.
[2023-08-23 08:11] VITALS: PULSE 79; RESP 16; TEMP 36.4; O2SAT 92
[2023-08-23 09:05] VITALS: BP 128/53
[2023-08-23] MEDS: Tamsulosin HCL 0.4 MG CAPSULE PO (09:05)
[2023-08-23] MEDS: amLODIPine Besylate 2.5 MG TABLET PO (09:05)
[2023-08-23] MEDS: metFORMIN HCl 500 MG TABLET PO ×2 (09:05→23:13)
[2023-08-23] MEDS: lisinopriL 20 MG TABLET PO ×2 (09:05→23:13)
[2023-08-23] MEDS: QUEtiapine Fumarate 100 MG TABLET PO ×2 (15:20→23:13)
--- NOTE | 2023-08-23 17:25 | PC.NURSE ---
Pt calm and cooperative, has brief periods of restlessness. Redirected easily. Denies pain or complaints.
[2023-08-23 19:56] VITALS: BP 125/51; PULSE 70; RESP 14; TEMP 36.5; O2SAT 100
[2023-08-23 22:35] VITALS: BP 129/80; PULSE 71; RESP 16; TEMP 36.6; O2SAT 99
[2023-08-23] MEDS: traZODone HCL 100 MG TABLET PO (23:13)
--- NOTE | 2023-08-23 23:16 | PC.NURSE ---
assumed care of pt 1914, pt sitting in recliner calm/cooperative. pt requested to walk around and talk, this RN walked with patient around ED pt ambulated with steady gait using walker. pt engaging in conversation speaking some ukrainian/barbadian. pt assisted back to room, able to make needs known. delay in med administration as pt was sleeping in bed. pt now medicated per mar tolerated meds with water. blankets provided per pt request.
[2023-08-24 05:44] VITALS: BP 97/42; PULSE 57; RESP 16; TEMP 37; O2SAT 96
--- NOTE | 2023-08-24 06:27 | PC.NURSE ---
pt has remained calm/cooperative through the night. pt moved to recliner couple times through the night. makes needs known. call pereyra within reach.
[2023-08-24 07:33] LABS: Estimated Glomerular Filt Rate > 60
--- NOTE | 2023-08-24 07:44 | PC.NURSE ---
this RN resumed care of pt at 0700. pt sitting comfortably in recliner eating breakfast. pt ate 100%. no sob/wob noted. respirations even and unlabored. pt continues to be PT/CM pt - pending LTC. call pereyra placed within reach.
[2023-08-24] MEDS: amLODIPine Besylate 2.5 MG TABLET PO (08:14)
[2023-08-24] MEDS: Tamsulosin HCL 0.4 MG CAPSULE PO (08:15)
[2023-08-24] MEDS: lisinopriL 20 MG TABLET PO ×2 (08:15→22:26)
[2023-08-24] MEDS: metFORMIN HCl 500 MG TABLET PO ×2 (08:15→22:26)
--- NOTE | 2023-08-24 08:31 | PC.NURSE ---
pt medicated per provider order. pills whole w/ water. no swallowing difficulties noted.
--- NOTE | 2023-08-24 13:11 | MHC.CM.ED ---
Patient remains in ER. Clinical updates sent to all facilities following. [facility] liaisonRachel, [facility] Waiting to hear if they will be able to accept patient. Continue to monitor for d/c needs.
[2023-08-24] MEDS: QUEtiapine Fumarate 100 MG TABLET PO ×2 (14:23→22:26)
--- NOTE | 2023-08-24 14:24 | PC.NURSE ---
pt medicated per provider order. ate 100% of lunch. pt remains calm/cooperative. call pereyra placed within reach.
[2023-08-24 17:50] VITALS: BP 126/50; PULSE 90; RESP 17; TEMP 35.4; O2SAT 100
--- NOTE | 2023-08-24 19:10 | PC.NURSE ---
Assumed care of PT at 1900. This RN walked PT around unit and returned to bed. PT gait steady with walker. Call pereyra within reach. Plan of care ongoing
[2023-08-24 21:28] VITALS: BP 147/70; PULSE 78; RESP 17; TEMP 36.2; O2SAT 97
[2023-08-24 22:26] VITALS: BP 147/78
[2023-08-24] MEDS: traZODone HCL 100 MG TABLET PO (22:26)
[2023-08-25 06:21] VITALS: BP 137/72; PULSE 52; RESP 16; TEMP 36.2; O2SAT 99
--- NOTE | 2023-08-25 06:40 | MHC.EDTECH ---
Ambulated with Pt around ED. Bedding change done for Pt and given clean hospital gown. Pt sitting quietly in bed at this time.
[2023-08-25 07:59] VITALS: BP 146/63; PULSE 56; RESP 13; TEMP 36.4; O2SAT 97
[2023-08-25] MEDS: metFORMIN HCl 500 MG TABLET PO ×2 (09:14→20:59)
[2023-08-25] MEDS: lisinopriL 20 MG TABLET PO ×2 (09:14→20:59)
[2023-08-25] MEDS: amLODIPine Besylate 2.5 MG TABLET PO (09:14)
[2023-08-25] MEDS: Tamsulosin HCL 0.4 MG CAPSULE PO (09:14)
[2023-08-25] MEDS: QUEtiapine Fumarate 50 MG TABLET PO ×2 (09:14→16:09)
--- NOTE | 2023-08-25 10:19 | PC.NURSE ---
Pt took meds whole with water without incident.
--- NOTE | 2023-08-25 11:53 | PC.NURSE ---
Assumed care of this patient at 1100, patient resting quietly in room at this time, easily redirectable.
--- NOTE | 2023-08-25 13:08 | MHC.CM.ED ---
Patient remains in ER. Still waiting to hear if [facility] is able to offer a bed. Reached out to facilities that are still following or haven't' responded in [facility]: [facility], [facility], [facility], [facility], [facility], [facility], [facility] and [facility]. Continue to monitor for d/c needs.
[2023-08-25 14:21] VITALS: BP 121/65; PULSE 104; RESP 14; TEMP 36.2; O2SAT 97
[2023-08-25] MEDS: QUEtiapine Fumarate 100 MG TABLET PO ×2 (14:51→20:59)
--- NOTE | 2023-08-25 18:20 | MHC.EDTECH ---
Patient given a shower and total bed changed
[2023-08-25] MEDS: Nystatin Powder 15 GM BOTTLE 1 APPL TOPICAL (18:32)
--- NOTE | 2023-08-25 18:32 | PC.NURSE ---
EDT showered patient, noted patient to have fungal looking rash throughout groin, nystatin powder ordered and applied.
--- NOTE | 2023-08-25 18:35 | MHC.EDTECH ---
Patient given dinner tray
[2023-08-25 19:06] VITALS: BP 134/60; PULSE 77; RESP 16; TEMP 36.6; O2SAT 95
[2023-08-25] MEDS: traZODone HCL 100 MG TABLET PO (21:00)
--- NOTE | 2023-08-25 23:14 | PC.NURSE ---
assumed care at 2314
--- NOTE | 2023-08-26 04:07 | PC.NURSE ---
pt awake, calm and cooperative ambulating in the [place] with a walker and standby assist in the hallway
--- NOTE | 2023-08-26 07:17 | PC.NURSE ---
patient sitting in chair, having breakfast. patient is calm and cooperative, respirations equal and unlabored, awake and alert
[2023-08-26 07:46] VITALS: BP 116/60; PULSE 67; RESP 14; O2SAT 97
[2023-08-26 08:56] VITALS: RESP 16; TEMP 36.4
[2023-08-26] MEDS: lisinopriL 20 MG TABLET PO ×2 (08:59→22:02)
[2023-08-26] MEDS: amLODIPine Besylate 2.5 MG TABLET PO (08:59)
[2023-08-26] MEDS: metFORMIN HCl 500 MG TABLET PO ×2 (08:59→22:02)
[2023-08-26] MEDS: Tamsulosin HCL 0.4 MG CAPSULE PO (08:59)
--- NOTE | 2023-08-26 09:25 | PC.NURSE ---
patient sitting in chair in room, medicated per MAY, takes meds whole with water. patient has camera sitter for safety
--- NOTE | 2023-08-26 11:37 | MHC.CM.ED ---
Addendum entered by Florina Frias 08/26/23 12:10: [facility] is able to offer a bed and has been asked to obtain insurance auth. Patient's daughter, Rylie, made aware via telephone at [phone]. She will let her mom know. Original Note: Patient remains in ER. Spoke with Traci, liaison for [facility]. They are concerned about patient being intrusive in other patient's room. T/W explained patient not been intrusive since his medications were changed. Patient is definitely a walker and does better when he can ambulate around the ER. He would absolutely be appropriate for a wander guard. There are times patient gets upset about not going home. At these times staff has called his daughter, Rylie. She has spoken to him and explained that it's just not safe for him to go home. He calms down after that. Traci will provide this information to facility and get back to . Continue to monitor for d/c needs.
--- NOTE | 2023-08-26 14:07 | PC.NURSE ---
patient sitting quietly, ate his lunch tray. patient ambulates with steady gait, awake and alert. patient enjoys wandering and talking with staff, patient has been calm and cooperative
[2023-08-26] MEDS: QUEtiapine Fumarate 100 MG TABLET PO ×2 (15:11→22:46)
--- NOTE | 2023-08-26 15:49 | PC.NURSE ---
patient sitting at the edge of his bed, given an apple sauce as a snack.
[2023-08-26 16:00] VITALS: BP 112/62; PULSE 67; RESP 15; O2SAT 97
--- NOTE | 2023-08-26 18:05 | PC.NURSE ---
patient is sitting up, awake and alert, eating dinner.
[2023-08-26 19:52] VITALS: BP 124/56; PULSE 75; RESP 16; TEMP 36.2; O2SAT 98
[2023-08-26 22:02] VITALS: BP 124/56
[2023-08-26] MEDS: traZODone HCL 100 MG TABLET PO (22:02)
[2023-08-26] MEDS: Lidocaine 4 % Patch ADH..PATCH 1 PATCH TRANSDERMA (22:49)
--- NOTE | 2023-08-27 01:09 | PC.NURSE ---
pt sleeping no s/s of distress, needs at bedside, skin pink warm and dry.
--- NOTE | 2023-08-27 01:20 | PC.NURSE ---
pt is in his bed sleeping, camera on, pt is also visable by staff. walker and needs are at bedside.
--- NOTE | 2023-08-27 04:21 | MHC.EDTECH ---
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
[2023-08-27 06:13] VITALS: BP 127/65; PULSE 87; RESP 16; TEMP 36.4; O2SAT 98
[2023-08-27 08:35] VITALS: BP 120/49; PULSE 64; RESP 16; O2SAT 99
[2023-08-27] MEDS: Tamsulosin HCL 0.4 MG CAPSULE PO (08:37)
[2023-08-27] MEDS: lisinopriL 20 MG TABLET PO (08:37)
[2023-08-27] MEDS: metFORMIN HCl 500 MG TABLET PO (08:37)
[2023-08-27] MEDS: amLODIPine Besylate 2.5 MG TABLET PO (08:37)
[2023-08-27 11:41] VITALS: BP 120/49; PULSE 64; RESP 16; TEMP 36.4; O2SAT 99
--- NOTE | 2023-08-27 11:42 | PC.NURSE ---
report given to UMER willett
== END 2023-08-27 11:42 | disposition home or self-care (01) ==
PROVIDERS: Physician Assistant; Psychiatry & Neurology Psychiatry; Social Worker; Emergency Provider Emergency Medicine; PCP Internal Medicine
DX: R62.7 Adult failure to thrive (principal); R41.82 Altered mental status, unspecified; R53.1 Weakness; F20.9 Schizophrenia, unspecified; R53.81 Other malaise; E11.9 Type 2 diabetes mellitus without complications; Z68.1 Body mass index [BMI] 19.9 or less, adult
CPT/HCPCS: 36415; 70450; 71045; 74177; 80053; 80061; 80307; 81003; 82140; 82565; 82947; 83036; 85025; 87635; 97162; 99285; J1200; J2060; J2359; J3486; Q9967

== ENCOUNTER → 2023-08-02 11:23 | Outpatient (BNV) | payer OTHER, SELFPAY | PROVIDERS: Emergency Provider Emergency Medicine; PCP Internal Medicine; Visit Provider Psychiatry & Neurology Psychiatry | DX: F03.90 Unspecified dementia, unspecified severity, without behavioral disturbance, psychotic disturbance, mood disturbance, and anxiety (principal); F20.9 Schizophrenia, unspecified | CPT/HCPCS: 99283; 99285 ==